=== PATIENT | female | born 1950 | race Caucasian/White ===

== ENCOUNTER 2016-12-15 14:25 | Emergency (ER) | payer MEDICARE, OTHER ==
[2016-12-15] MEDS ORDERED: NORMAL SALINE 1,000 ML IV ONE (14:46)
[2016-12-15 15:02] LABS: Hematocrit 40.9 % (37.0-47.0); Hemoglobin 14.1 gm/dL (12.5-16.0); Mean Cell Volume 84.2 fl (78-100); Mean Corpuscular Hgb Conc 34.5 g/dl (32-36); Mean Platelet Volume 10.8 fl (6.0-9.5); Neutrophil # 4.5 K/mm3 (1.3-6.0); Neutrophil % 69.2 % (42-75.0); Platelet Count 199 K/mm3 (150-450); Red Blood Count 4.86 M/mm3 (4.2-5.4); Red Cell Distribution Width 14.2 % (11.5-14.0); White Blood Count 6.6 K/mm3 (4.0-10.5)
[2016-12-15 15:18] LABS: Prothrombin Time (Patient) 10.9 Seconds (9.4-11.4)
[2016-12-15 15:20] LABS: INR 1.05 INR (0.90-1.10)
[2016-12-15 15:21] LABS: Partial Thrombolplastin Time 24.9 Seconds (24-32)
[2016-12-15 15:22] LABS: ALT 16 U/L (19-67); AST 14 U/L (0-48); Albumin * 3.6 gm/dl (3.4-5.0); Alkaline Phosphatase * 79 U/L (50-170); Anion Gap 12.1 mmol/L (6.8-13.8); BUN/Creatinine Ratio 13.8 (9.0-21.6); Bilirubin, Total 0.7 mg/dL (0.0-1.1); Blood Urea Nitrogen 16 mg/dL (3-23); Ca. Corrected For Albumin 8.5 mg/dL (8.4-10.2); Calcium * 8.5 mg/dL (7.9-10.9); Carbon Dioxide 28.8 mmol/L (24-32.6); Chloride 100 mmol/L (97-106); Glucose * 147 mg/dL (70-110); Magnesium 1.6 mg/dL (1.2-2.8); Potassium 2.9 mmol/L (3.4-4.6); Sodium 138 mmol/L (132-142); Total Protein 7.1 gm/dL (6.2-8.2); Troponin I Less than 0.017 ng/ml (0.00-0.10)
[2016-12-15 15:43] LABS: Urine Bilirubin Negative (NEGATIVE); Urine Blood Negative /ul (NEGATIVE); Urine Ketone Negative (NEGATIVE); Urine Nitrite Negative (NEGATIVE); Urine Protein Negative (NEGATIVE); Urine Urobilinogen Normal (NORMAL)
--- OUTSIDE RECORDS SUMMARY | 2016-12-15 15:55 | XMS REPORT | Continuity of Care Document ---
:1950 Author Organization [facility] [place] [address] Care Team Providers Name Role Phone Emanuel Kohli Primary Care Provider [phone] Source Comments This disclosure is being made pursuant to the OneBuild program and maynot contain all information available regarding this patient.[facility] Active Allergies and Adverse Reactions Allergen Noted Date Severity Reactions Comments Penicillins 11/01/2016 Unknown Current Medications Be aware that medications may not be up to date as of this document. Alwaysverify current medications with the patient. Prescription Sig. Disp. Refills Start Date End Date Status levothyroxine Take 1 tablet by 90 tablet 3 08/25/2016 Active (SYNTHROID) 150 MCG mouth daily. tablet pravastatin (PRAVACHOL) Take 1 tablet by 90 tablet 3 08/25/2016 Active 40 MG tablet mouth every evening. venlafaxine HCl Take 1 capsule 90 capsule 3 08/25/2016 Active (EFFEXOR-XR) 75 MG 24 by mouth daily. hr capsule metoprolol tartrate Take 1 tablet by 180 tablet 3 08/25/2016 Active (LOPRESSOR) 50 MG mouth 2 (two) tablet times daily. aspirin 81 MG EC tablet Take 81 mg by Active mouth daily. diazepam (VALIUM) 10 MG Take 10 mg by Active tablet mouth daily. lisinopril Take 1 tablet by 90 tablet 3 11/02/2016 Active (PRINIVIL,ZESTRIL) 20 mouth daily. MG tablet varenicline (CHANTIX) 1 Take 1 tablet by 180 tablet 3 11/02/2016 Active MG tablet mouth 2 (two) times daily. furosemide (LASIX) 20 Take 1 tablet by 7 tablet 0 11/10/2016 Active MG tablet mouth daily. clopidogrel (PLAVIX) 75 Take 1 tablet by 7 tablet 0 11/10/2016 Active MG tablet mouth daily. Active Problems Problem Noted Date CVA (cerebral vascular accident) (HCC) 11/02/2016 Hypothyroidism 11/01/2016 Hyperlipidemia Hypertension Most Recent Encounters Date Type Specialty Providers Description 11/22/2016 Orders Only Provider, Not In System 11/13/2016 Orders Only Provider, Not In System 11/10/2016 Refill Family Medicine [place], Shanice A, [employer] TE[employer] 11/02/2016 Office Visit Family Medicine Emanuel Kohli MD TIA due to embolism (HCC) (Primary Dx); Essential hypertension; Hypothyroidism, unspecified type 11/02/2016 Refill Family Medicine [place], Shanice A, [employer] TECHNICIAN 11/02/2016 Refill Family Medicine [place], Shanice A, [employer] TECHNICIAN 11/02/2016 Refill Family Medicine [place], Shanice A, [employer] TECH[employer]ICIAN 11/01/2016 Abstract Family Medicine [place], [facility] Immunizations Name Dates Previously Given Next Due Tdap 01/18/2010 Social History Tobacco Use Types Packs/Day Years Used Date Current Every Day Smoker 0.5 Last Filed Vital Signs Vital Sign Reading Time Taken Blood Pressure 161/92 11/02/2016 1:13 PM CDT Pulse 74 11/02/2016 1:13 PM CDT Temperature 36.3 C (97.4 F) 11/02/2016 1:13 PM CDT Respiratory Rate 16 11/02/2016 1:13 PM CDT Height 1.753 m (5' 9") 11/02/2016 1:13 PM CDT Weight 93.804 kg (206 lb 12.8 oz) 11/02/2016 1:13 PM CDT Body Mass Index 30.53 11/02/2016 1:13 PM CDT Oxygen Saturation 96% 11/02/2016 1:13 PM CDT Plan of Care Patient Goal Type Goal Blood Pressure Blood Pressure below 140/90 Health Maintenance Due Date Last Done Comments Hepatitis C Screening 1969 Colonoscopy 2001 Mammogram 2001 Well Adult Visit 2001 Zoster Vaccine 60+ 2011 Influenza Immunization (#1) 2016 Bone Density 2016 Pneumococcal Low/Medium Risk 65+ (1 of 2 - PCV13) 2016 Tetanus/Pertussis (2 - Td) 01/19/2020 01/18/2010 Results from Last 3 Months Urinalysis with microscopic (11/10/2016)Comprehensive metabolic panel (2016)Laboratory Miscellaneous (11/10/2016)PROTIME-INR (11/10/2016) Component Value Range INR 1.0 Protime 12.2 seconds Narrative See scanned results 11-10-16 CBC auto differential (11/10/2016) Component Value Range WBC Count 9.8 10^3/mL RBC 6.00 10^6/L Hemoglobin 17.3 g/dL Hematocrit 51.8 % Platelets 195 K/L Specimen BLOOD Narrative See scanned results 11-10-16 CT HEAD OR BRAIN WO CONTRAST (11/10/2016)XR CHEST AP ONLY (11/10/2016)MRI BRAIN WO CONTRAST (10/27/2016)
[2016-12-15 15:56] LABS: Cocaine Ur Negative (NEGATIVE); Urine Barbiturate Negative (NEGATIVE); Urine Benzodiazepines Negative (NEGATIVE); Urine Opiates Negative (NEGATIVE); Urine PCP Negative (NEGATIVE); Urine THC Negative (NEGATIVE)
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
--- NOTE | 2016-12-15 16:03 | ERNOTE ---
Syncope ER HPI Stated Complaint: PASSED OUT Time Seen by Provider: 12/15/16 14:27 Source: patient, EMS Exam Limitations: no limitations Immunizations: IMMUNIZATION HX Immunizations Up to Date Yes History of Influenza Vaccine Yes Hx Pneumococcal Vaccination Yes Allergies/Adverse Reactions: Allergies Penicillins Allergy (Mild, Verified 12/15/16 14:42) rash Home Medications: HOME MEDICATIONS Aspirin [Aspirin EC] 81 mg PO DAILY 06/16/16 [Last Taken Unknown] Diazepam 10 mg PO DAILY 06/16/16 [Last Taken Unknown] HYDROcodone/ACETAMINOPHEN [[place] 5-325] 1 each PO Q4H PRN 06/16/16 [Last Taken Unknown] Levothyroxine Sodium [Synthroid] 112 mcg PO DAILY 06/16/16 [Last Taken Unknown] Metoprolol Tartrate [Lopressor] 50 mg PO BID 06/16/16 [Last Taken Unknown] Pravastatin Sodium [Pravachol] 40 mg PO DAILY 06/16/16 [Last Taken Unknown] Varenicline Tartrate [Chantix] 1 mg PO BID 06/16/16 [Last Taken Unknown] Venlafaxine HCl 75 mg PO DAILY 06/16/16 [Last Taken Unknown] oxyCODONE HCL/ACETAMINOPHEN [Percocet 5-325 mg Tablet] 1 each PO Q4H PRN [Last Taken Unknown] Clopidogrel Bisulfate [Plavix] 75 mg PO DAILY #30 tab 12/15/16 [Last Taken Unknown] - History of Present Illness Narrative: Patient was at the restaurant with her friends and had an episode where she got somewhat confused disoriented and not able to answer questions very well. Patient states she's had these episodes in the past and was in [place] several months ago and was diagnosed with TIAs. At that time patient had an MRI and MRA of the head and neck she had ultrasounds of the heart for sure and she thinks possibly the carotids. Patient states this is very similar to the episodes that she had in [place] and she is once again back to her baseline. Prior Episodes: Present: recent history Symptoms prior to episode: Present: none Activity at time of episode: Present: sitting Character of event: Present: no loss of consciousness Location of Injury: Present: none Current Symptoms: Present: back to normal Prior Treament: Reports: recently seen, treated by physician, recently hospitalized, similar symptoms before Review of Systems - Review of Systems Constitutional: Present: See HPI EYE: Present: no symptoms reported ENT: Present: no symptoms reported Respiratory: Present: no symptoms reported Cardiology: Present: no symptoms reported Gastrointestinal/Abdominal: Present: no symptoms reported Genitourinary: Present: no symptoms reported Musculoskeletal: Present: no symptoms reported Skin: Present: no symptoms reported Neurological: Present: See HPI Endocrine: Present: no symptoms reported Hematologic/Lymphatic: Present: no symptoms reported Psych: Present: no symptoms reported - Patient's Past Medical History Patient History - Medical: Other - multiple TIA's Patient History - Cardiac/Respiratory: Other Patient History - Cancer: No Hx of Cancer Patient History - Surgical Procedures: Colonoscopy, Cardiac stent, Tubal Ligation Patient History - Other: None LMP (females 10-50): Menopausal - Family History Father Family History - Medical: , Other Family History - Cardiac/Respiratory: No pertinent hx Mother Family History - Medical: No pertinent hx Family History - Cardiac/Respiratory: No pertinent hx - Social History Living Situations: home Abuse History: No History of abuse Psych History: Hx of Anxiety, Hx of Depression, Current tx/ever been on anti- depressants or anti-anxiety meds Smoking Status: Current every day smoker Have you smoked in the past 12 months: Yes Alcohol Use: none Drug Use: none - Immunizations Immunizations Up to Date: Yes Hx Pneumococcal Vaccination: Yes History of Influenza Vaccine: Yes Physical Exam - Physical Exam General Appearance: Present: wd/wn, alert, no apparent distress Eye Exam: Normal inspection: bilateral, PERRL: bilateral Ears, Nose, Throat: Present: normal ENT inspection, H, normal pharynx Neck: Present: normal inspection, nontender Respiratory: Present: no respiratory distress, normal breath sounds, no accessory muscle use, chest nontender, lungs clear Cardiovascular/Chest: Present: regular rate, rhythm, no murmur, normal peripheral pulses Gastrointestinal/Abdominal: Present: normal bowel sounds, nontender, nondistended, soft, no organomegaly Rectal Exam: Present: deferred Back Exam: Present: normal inspection, normal range of motion Extremity Exam: Present: normal inspection, non-tender, no edema, normal range of motion Neurological Exam: Present: alert, oriented, normal mood/affect, other - mild perseverence Skin Exam: Present: normal color, warm/dry Lymphatic Exam: Present: no adenopathy ED Progress - Results and Orders Patient's Lab Results:: I have reviewed the patient's lab results. - Vital Signs Patient's Vital Signs:: I have reviewed the patient's vital signs. Vital Signs: Vital Signs 12/15/16 12/15/16 14:25 15:29 Temperature 36.5 C 36.3 C L Pulse Rate 70 74 Respiratory 16 12 Rate Blood Pressure 177/87 167/101 O2 Sat by Pulse 93 95 Oximetry - EKG EKG: NSR, RBBB - CT/Ultrasound CT/Ultrasound Narrative: CT head reviewed - Progress/Reassessment Chief Complaint: Syncopal Episode - Transfer of Care Expected Disposition: Discharge Plan - Plan Plan: Patient states these are exactly the same kind of symptoms that she had while she was in [place]. At that point she received a full stroke workup including examination of the brain with MRI MRA, examination of the carotid arteries and echocardiogram of the heart. No abnormalities were found on those exams and patient was started on prophylactic medicines to try to minimize the risk of a stroke. I will review these medications that she is on and perhaps alter them to certainly very and she has had another breakthrough TIA. Patient is completely back to baseline now and feels 100% normal. Patient was started on a baby aspirin while she was in [place] and we will change that medication to Plavix at this juncture. Patient will given the name of Dr. Yen Dutta for follow-up and patient is discharged in stable condition. Departure Clinical Impression: TIA (transient ischemic attack) Qualifiers: Transient cerebral ischemia type: unspecified Qualified Code(s): G45.9 - Transient cerebral ischemic attack, unspecified - Departure Disposition: Home self-care Condition: Good Instructions: Transient Ischemic Attack, [id number] Referrals: Hetal Vinson FNP [Primary Care Provider] - Yen Dutta DO [Staff Physician] - Prescriptions: Clopidogrel Bisulfate [Plavix] 75 mg PO DAILY #30 tab
[2016-12-15 16:07] LABS: Urine Appearance Clear; Urine Color Yellow; Urine WBC TRACE /hpf (0-5)
[2016-12-15 16:08] LABS: Urine Bacteria 1+; Urine RBC None Seen /hpf (0-5)
[2016-12-15 16:11] VITALS: BP 180/87
== END 2016-12-15 16:22 | disposition home or self-care (01) ==
LOC: ER 14:25
DX: G45.9 Transient cerebral ischemic attack, unspecified (principal); R41.0 Disorientation, unspecified; F17.200 Nicotine dependence, unspecified, uncomplicated
CPT/HCPCS: 36415; 70450; 80053; 80307; 81001; 82140; 83735; 84484; 85025; 85610; 85730; 87086; 93005; 99283; G0481

== ENCOUNTER 2018-08-06 13:59 | Observation (INO) ==
[2018-08-06 14:58] LABS: Hematocrit 25.6 % (37.0-47.0); Mean Cell Volume 94.1 fl (78-100); Mean Corpuscular Hemoglobin 27.2 pg (27-31); Mean Corpuscular Hgb Conc 28.9 g/dl (32-36); Neutrophil # 6.9 K/mm3 (1.3-6.0); Neutrophil % 84.6 % (42-75.0); Platelet Count 240 K/mm3 (150-450); Red Blood Count 2.72 M/mm3 (4.2-5.4); Red Cell Distribution Width 20.9 % (11.5-14.0); White Blood Count 8.2 K/mm3 (4.0-10.5)
[2018-08-06 14:59] LABS: Hemoglobin 7.4 gm/dL (12.5-16.0)
[2018-08-06 15:10] LABS: Albumin * 2.7 gm/dl (3.4-5.0); Anion Gap 13.5 mmol/L (6.8-13.8); BUN/Creatinine Ratio 20.8 (9.0-21.6); Bilirubin, Total 1.4 mg/dL (0.0-1.1); Ca. Corrected For Albumin 9.2 mg/dL (8.4-10.2); Calcium * 8.5 mg/dL (7.9-10.9); Carbon Dioxide 33.1 mmol/L (24-32.6); Magnesium 1.9 mg/dL (1.2-2.8); Potassium 3.6 mmol/L (3.4-4.6); Total Protein 6.2 gm/dL (6.2-8.2)
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
[2018-08-06 15:13] LABS: Urine Bilirubin Negative (NEGATIVE); Urine Ketone Negative (NEGATIVE); Urine Nitrite Negative (NEGATIVE); Urine Protein Negative (NEGATIVE); Urine Urobilinogen Normal (NORMAL); Urine pH 6.5 pH (5.0-7.0)
[2018-08-06 15:20] LABS: Urine Appearance Slightly Cloudy (CLEAR); Urine Bacteria 2+; Urine Blood 5 /ul (NEGATIVE); Urine Color Yellow; Urine RBC 0-5 /hpf (0-5); Urine WBC 25-50 /hpf (0-5)
[2018-08-06 15:21] LABS: Urine Yeast Few - 1+
[2018-08-06] MEDS ORDERED: NORMAL SALINE 1,000 ML IV ONE (15:31)
[2018-08-06] MEDS ORDERED: cefTRIAXone SODIUM 1,000 MG/100 ML BAG IV ONE (16:13)
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
[2018-08-06] MEDS: AMIODARONE HCL 200 MG TABLET PO SCH (21:40)
[2018-08-06] MEDS: MIDODRINE HCL 2.5 MG TABLET PO SCH (21:41)
[2018-08-06] MEDS: DOXYCYCLINE HYCLATE 100 MG TABLET PO SCH (21:41)
[2018-08-06] MEDS: APIXABAN 5 MG TABLET PO SCH (21:41)
[2018-08-06] MEDS: NICOTINE 14 MG PATC TD SCH (21:41)
[2018-08-06] MEDS: CARVEDILOL 3.125 MG TABLET PO SCH (21:41)
[2018-08-07 07:40] LABS: Hematocrit 32.8 % (37.0-47.0); Hemoglobin 10.3 gm/dL (12.5-16.0); Mean Cell Volume 90.9 fl (78-100); Mean Corpuscular Hemoglobin 28.5 pg (27-31); Mean Corpuscular Hgb Conc 31.4 g/dl (32-36); Mean Platelet Volume 9.6 fl (8-12.5); Neutrophil # 6.2 K/mm3 (1.3-6.0); Neutrophil % 85.6 % (42-75.0); Platelet Count 200 K/mm3 (150-450); Red Blood Count 3.61 M/mm3 (4.2-5.4); Red Cell Distribution Width 19.2 % (11.5-14.0); White Blood Count 7.2 K/mm3 (4.0-10.5)
[2018-08-07 08:01] LABS: Albumin * 2.6 gm/dl (3.4-5.0); Anion Gap 12.9 mmol/L (6.8-13.8); BUN/Creatinine Ratio 19.5 (9.0-21.6); Bilirubin, Total 1.3 mg/dL (0.0-1.1); Ca. Corrected For Albumin 8.9 mg/dL (8.4-10.2); Calcium * 8.1 mg/dL (7.9-10.9); Carbon Dioxide 31.3 mmol/L (24-32.6); Potassium 3.2 mmol/L (3.4-4.6); Total Protein 6.2 gm/dL (6.2-8.2)
[2018-08-07] MEDS: PANTOPRAZOLE SODIUM 40 MG TABLET.EC PO SCH (08:07)
[2018-08-07] MEDS: CARVEDILOL 3.125 MG TABLET PO SCH ×2 (08:07→16:19)
[2018-08-07] MEDS: DOXYCYCLINE HYCLATE 100 MG TABLET PO SCH ×2 (08:07→22:07)
[2018-08-07] MEDS: LACTOBACILLUS ACIDOPHILUS 100 CAP BTL PO SCH ×3 (08:08→16:18)
[2018-08-07] MEDS: VENLAFAXINE HCL 37.5 MG CAP.SR.24H PO SCH (08:08)
[2018-08-07] MEDS: LEVOTHYROXINE SODIUM 150 MCG TABLET PO SCH (08:08)
[2018-08-07] MEDS: CLOPIDOGREL BISULFATE 75 MG TABLET PO SCH (08:08)
[2018-08-07] MEDS: DOCUSATE SODIUM 100 MG CAPSULE PO SCH (08:08)
[2018-08-07] MEDS: AMIODARONE HCL 200 MG TABLET PO SCH ×2 (08:08→22:07)
[2018-08-07] MEDS: DULoxetine HCL 30 MG CAPSULE.SA PO SCH (08:08)
[2018-08-07] MEDS: ASPIRIN 81 MG TABLET.DR PO SCH (08:08)
[2018-08-07] MEDS: MIDODRINE HCL 2.5 MG TABLET PO SCH ×3 (08:09→16:18)
[2018-08-07] MEDS: APIXABAN 5 MG TABLET PO SCH ×2 (08:09→22:07)
[2018-08-07] MEDS: NICOTINE 14 MG PATC TD SCH (08:15)
[2018-08-07] MEDS: NORMAL SALINE 1,000 ML IV PRN ×2 (08:17→22:02)
[2018-08-07] MEDS ORDERED: ROSUVASTATIN CALCIUM 10 MG TABLET PO SCH ×2 (09:00→21:00)
[2018-08-07] MEDS ORDERED: ALBUTEROL SULFATE 2.5 MG/0.5 ML VIAL.NEB IH PRN (17:28)
[2018-08-07] MEDS ORDERED: ACETAMINOPHEN 325 MG TABLET PO PRN (17:28)
[2018-08-07] MEDS ORDERED: Lytes/Yerba Santa 60 APPL BTL MM PRN (17:28)
[2018-08-07] MEDS ORDERED: ENOXAPARIN SODIUM 40 MG/0.4 ML SYRG SC SCH (17:45)
--- NOTE | 2018-08-07 20:38 | PN ---
Subjective - Date and Time Seen Date: 08/07/18 Time: 12:50 Subjective Narrative: Inna appears to feel better today and her color is definitely improved since being transfused. She is still sleepy and frequently confused. Family is wondering if some of this may be a medication such as her venlafaxine. Since she has both cirrhosis of her liver and stage IV chronic kidney disease it is possible that she is not clearing one or more of her drugs. One of her medi cines, midodrine, is indicated for hypotension, orthostatic and otherwise. However it is contraindicated in people with chronic kidney disease or heart disease and Inna has both. Therefore I will discontinue this medicine and will monitor her blood pressures. Objective - Review of Systems Generalized/Overall Review: Reports: Weakness, Malaise EENTM: Reports: No Symptoms Reported Respiratory: Reports: No Symptoms Reported Cardiac: Reports: No Symptoms Reported Abdominal: Reports: No Symptoms Reported Genitourinary Symptoms: Reports: No Symptoms Reported Musculoskeletal Complaints: Reports: No Symptoms Reported Neurological: Reports: No Symptoms Reported Skin: Reports: No Symptoms Reported Endocrine: Reports: No Symptoms Reported - Vitals Vitals: Last Vital Signs Temp 36.3 C 08/07/18 14:32 Pulse 97 08/07/18 16:19 Resp 16 08/07/18 14:32 BP 128/80 08/07/18 16:19 Pulse Ox 96 08/07/18 14:32 - Abnormal Lab Findings Abnormal Lab Findings: Abnormal Lab Results 08/06/18 08/07/18 08/07/18 Range/Units 15:45 07:30 07:30 RBC 3.61 L (4.2-5.4) M/mm3 Hgb 10.3 L (12.5-16.0) gm/dL Hct 32.8 L (37.0-47.0) % MCHC 31.4 L (32-36) g/dl RDW 19.2 H (11.5-14.0) % Neutrophils % 85.6 H (42-75.0) % Lymphocytes % 9.7 L (20-51) % Neutrophils # 6.2 H (1.3-6.0) K/mm3 Lymphocytes # 0.70 L (1.5-3.5) k/mm3 Potassium 3.2 L (3.4-4.6) mmol/L BUN 48 H (3-23) mg/dL Creatinine 2.46 H (0.4-1.4) mg/dL Est GFR (Non-Af Amer) 21 L (60-130) mL/min Total Bilirubin 1.3 H (0.0-1.1) mg/dL Alkaline Phosphatase 217 H (50-170) U/L Albumin 2.6 L (3.4-5.0) gm/dl Crossmatch See Detail - Exam Constitutional: Present: Oriented x3, Cooperative, Well developed, Well nourished, Mild distress, Looks Older than stated age ENT Exam: Present: normal ENT inspection, hearing grossly normal, pharynx normal Neck: Present: non-tender, full range of motion, supple, normal inspection Breasts: Present: Exam deferred Respiratory: Present: chest non-tender, lungs clear, normal breath sounds, no respiratory distress, no accessory muscle use Cardiovascular/Chest: Present: normal peripheral pulses, regular rate, rhythm, no chest tenderness, no edema, no gallop, no JVD, no murmur, no rub Abdomen: Present: Normal bowel sounds, soft, nontender, nondistended, no rebound tenderness, no hepatospenomegaly, no masses /Rectal: Present: Exam deferred, External genitalia normal, discharge Extremity: Present: normal range of motion, non-tender, normal inspection Skin Exam: Present: normal color, warm/dry, no cyanosis Lymphatic: Present: no adenopathy, axilla node tender (R) Neurologic: Present: [place] former brace end II-XII nml as tested, normal cerebellar test Appearance: Present: appropriate appearance, appropriate insight Eye contact: Present: cooperative, good eye contact, normal speech Thoughts: Present: normal thought pattern, no apparent hallucination Assessment/Plan - Problems/Diagnosis (1) Anemia Problem: Acute Qualifiers: Anemia type: unspecified type Qualified Code(s): D64.9 - Anemia, unspecified (2) Cirrhosis of liver Problem: Acute (3) Pleural effusion Problem: Acute (4) Status post below knee amputation of left lower extremity Problem: Acute (5) Chronic renal insufficiency, stage IV (severe) Problem: Acute (6) Dehydration Problem: Acute (7) Cardiomegaly Problem: Chronic (8) UTI (urinary tract infection) Problem: Acute Qualifiers: Urinary tract infection type: acute cystitis Hematuria presence: without hematuria Qualified Code(s): N30.00 - Acute cystitis without hematuria
[2018-08-07] MEDS: POLYETHYLENE GLYCOL 3350 119 GM BTL PO SCH (22:08)
[2018-08-08] MEDS: LEVOTHYROXINE SODIUM 150 MCG TABLET PO SCH (06:50)
[2018-08-08] MEDS: DENTAL ADHESIVE 39 APPL TUBE TP SCH ×2 (08:53→09:08)
[2018-08-08] MEDS: DOXYCYCLINE HYCLATE 100 MG TABLET PO SCH (08:54)
[2018-08-08] MEDS: LACTOBACILLUS ACIDOPHILUS 100 CAP BTL PO SCH (08:54)
[2018-08-08] MEDS: ASPIRIN 81 MG TABLET.DR PO SCH (08:54)
[2018-08-08] MEDS: DULoxetine HCL 30 MG CAPSULE.SA PO SCH (08:55)
[2018-08-08] MEDS: DOCUSATE SODIUM 100 MG CAPSULE PO SCH (08:55)
[2018-08-08] MEDS: APIXABAN 5 MG TABLET PO SCH (08:56)
[2018-08-08] MEDS: VENLAFAXINE HCL 37.5 MG CAP.SR.24H PO SCH (08:56)
[2018-08-08] MEDS: PANTOPRAZOLE SODIUM 40 MG TABLET.EC PO SCH (08:56)
[2018-08-08] MEDS: CLOPIDOGREL BISULFATE 75 MG TABLET PO SCH (08:56)
[2018-08-08] MEDS: CARVEDILOL 3.125 MG TABLET PO SCH (08:56)
[2018-08-08] MEDS: AMIODARONE HCL 200 MG TABLET PO SCH (08:56)
[2018-08-08] MEDS: NICOTINE 14 MG PATC TD SCH (08:57)
[2018-08-08] MEDS: POLYETHYLENE GLYCOL 3350 119 GM BTL PO SCH (08:58)
[2018-08-08 09:03] LABS: Hemoglobin 10.4 gm/dL (12.5-16.0); Mean Cell Volume 91.4 fl (78-100); Mean Corpuscular Hgb Conc 30.6 g/dl (32-36); Mean Platelet Volume 10.1 fl (8-12.5); Neutrophil % 80.2 % (42-75.0); Platelet Count 197 K/mm3 (150-450); Red Blood Count 3.72 M/mm3 (4.2-5.4); Red Cell Distribution Width 18.6 % (11.5-14.0); White Blood Count 7.4 K/mm3 (4.0-10.5)
[2018-08-08 09:16] LABS: Albumin * 2.6 gm/dl (3.4-5.0); Anion Gap 12.8 mmol/L (6.8-13.8); BUN/Creatinine Ratio 19.1 (9.0-21.6); Ca. Corrected For Albumin 8.9 mg/dL (8.4-10.2); Calcium * 8.1 mg/dL (7.9-10.9); Carbon Dioxide 30.1 mmol/L (24-32.6); Potassium 2.9 mmol/L (3.4-4.6); Total Protein 6.2 gm/dL (6.2-8.2)
[2018-08-08] MEDS: NORMAL SALINE 1,000 ML IV PRN (11:22)
--- NOTE | 2018-08-08 12:07 | DS ---
(1) Anemia Problem: Resolved Qualifiers: Anemia type: unspecified type Qualified Code(s): D64.9 - Anemia, unspecified (2) Cirrhosis of liver Problem: Chronic (3) Pleural effusion Problem: Chronic (4) Status post below knee amputation of left lower extremity Problem: Chronic (5) Chronic renal insufficiency, stage IV (severe) Problem: Chronic (6) Dehydration Problem: Resolved (7) Cardiomegaly Problem: Chronic (8) UTI (urinary tract infection) Problem: Acute Qualifiers: Urinary tract infection type: acute cystitis Hematuria presence: without hematuria Qualified Code(s): N30.00 - Acute cystitis without hematuria Description of Stay: Inna Fregoso is a 67-year-old female who was admitted with altered mental status and decreased awareness. She was more shortness of breath and weaker and hypersomnolence. She was brought to the emergency room and found to be anemic with hemoglobin of 7.4 g. Also discovered were bilateral pleural effusions right greater than left, stage IV chronic kidney disease, electrolyte imbalance, and cirrhosis of her liver. CT of the head in the ER was negative. Subsequent chest x-ray done yesterday actually shows increased pulmonary vascular markings but I think is probably due just to improve hydration rather than failure. Her neck veins are not distended in her HJR is negative there is minimal if any edema. She recently had had a left BKA and she has been and also residential recovering. She has a large eschar and the flap suture line. There is just mild pinkness of the edge of the suture line but there is no redness, fever, or unusual pain. There is no purulence although there is some clear serous drainage in one location. Wound care was asked to see her for recommendations and management. It appears to me that this wound is healing and apparently should be given a chance to do so. It is not infected and is not dehiscing. She'll be going back to [place] for further care and recovery from her amputation. Procedures Performed: see notes below - blood transfusions 2 units packed red blood cells Results and Findings: Pending Mircobiology Results 08/06/18 15:00 Blood Blood Culture - Preliminary NO GROWTH 24 HOURS 08/06/18 14:41 Blood Blood Culture - Preliminary NO GROWTH 24 HOURS Lab Pending Results 08/06/18 14:41: WBC 8.2, RBC 2.72 L, Hgb 7.4 L* D, Hct 25.6 L, MCV 94.1, MCH 27.2, MCHC 28.9 L, RDW 20.9 H, Plt Count 240, MPV 10.0, Immature Gran % (Auto) 0.40, Immature Gran # (Auto) 0.03, Neutrophils % 84.6 H, Lymphocytes % 10.5 L, Monocytes % 3.2, Eosinophils % 1.2, Basophils % 0.1, Nucleated RBC % 0.0, Neutrophils # 6.9 H, Lymphocytes # 0.86 L, Monocytes # 0.3, Eosinophils # 0.1, Absolute Basophils 0.0 08/06/18 14:41: Sodium 141, Plasma Sodium 141, Potassium 3.6 D, Chloride 98, Carbon Dioxide 33.1 H, Anion Gap 13.5, BUN 50 H D, Creatinine 2.40 H D, Est GFR (Non-Af Amer) 21 L D, BUN/Creatinine Ratio 20.8, Random Glucose 92, Calcium 8.5, Calcium Adj for Albumin 9.2, Magnesium 1.9, Total Bilirubin 1.4 H, AST 31, ALT 22, Alkaline Phosphatase 212 H, Total Protein 6.2, Albumin 2.7 L 08/06/18 14:41: Lactic Acid, Venous 2.3 H* 08/06/18 14:41: Ammonia Less than 17.0 08/06/18 14:41: Troponin I 0.049 08/06/18 15:09: Urine Color Yellow, Urine Appearance Slightly cloudy, Urine pH 6.5, Ur Specific [place] 1.010, Urine Protein Negative, Urine Glucose (UA) Negative, Urine Ketones Negative, Urine Blood 5 H, Urine Nitrate Negative, Urine Bilirubin Negative, Urine Urobilinogen Normal, Ur Leukocyte Esterase 100 H, Urine RBC 0-5, Urine WBC 25-50 H, Ur Epithelial Cells 5-10 H, Urine Bacteria 2+ H, Urine Yeast Few - 1+ H, Urine Culture Comments Culture to follow 08/06/18 15:45: Blood Type O Positive, Antibody Screen Negative, Crossmatch See Detail 08/06/18 19:13: Lactic Acid, Venous 1.9 08/07/18 07:30: WBC 7.2, RBC 3.61 L, Hgb 10.3 L, Hct 32.8 L, MCV 90.9, MCH 28.5, MCHC 31.4 L, RDW 19.2 H, Plt Count 200, MPV 9.6, Immature Gran % (Auto) 0.30, Immature Gran # (Auto) 0.02, Neutrophils % 85.6 H, Lymphocytes % 9.7 L, Monocytes % 1.9, Eosinophils % 2.4, Basophils % 0.1, Nucleated RBC % 0.0, Neutrophils # 6.2 H, Lymphocytes # 0.70 L, Monocytes # 0.1, Eosinophils # 0.2, Absolute Basophils 0.0 08/07/18 07:30: Sodium 141, Plasma Sodium 141, Potassium 3.2 L, Chloride 100, Carbon Dioxide 31.3, Anion Gap 12.9, BUN 48 H, Creatinine 2.46 H, Est GFR (Non- Af Amer) 21 L, BUN/Creatinine Ratio 19.5, Random Glucose 95, Calcium 8.1, Calcium Adj for Albumin 8.9, Total Bilirubin 1.3 H, AST 30, ALT 22, Alkaline Phosphatase 217 H, Total Protein 6.2, Albumin 2.6 L 08/08/18 08:49: WBC 7.4, RBC 3.72 L, Hgb 10.4 L, Hct 34.0 L, MCV 91.4, MCH 28.0, MCHC 30.6 L, RDW 18.6 H, Plt Count 197, MPV 10.1, Immature Gran % (Auto) 0.30, Immature Gran # (Auto) 0.02, Neutrophils % 80.2 H, Lymphocytes % 12.5 L, Monocytes % 3.5, Eosinophils % 3.4 H, Basophils % 0.1, Nucleated RBC % 0.0, Neutrophils # 6.0, Lymphocytes # 0.93 L, Monocytes # 0.3, Eosinophils # 0.3, Absolute Basophils 0.0 08/08/18 08:49: Sodium 141, Plasma Sodium 141, Potassium 2.9 L, Chloride 101, Carbon Dioxide 30.1, Anion Gap 12.8, BUN 42 H, Creatinine 2.20 H, Est GFR (Non- Af Amer) 24 L, BUN/Creatinine Ratio 19.1, Random Glucose 102, Calcium 8.1, Calcium Adj for Albumin 8.9, Total Bilirubin 1.0, AST 27, ALT 21, Alkaline Phosphatase 237 H, Total Protein 6.2, Albumin 2.6 L Discharge Location: [facility] Disposition: [facility] Condition: Poor Level of Care: SNF Discharge Activity: Activity as tolerated, Weight bearing - on remaining leg as able. Discharge Diet: Renal Failure Mcfp Therapy: Physicial Therapy, Occupation Therapy, Speech Therapy Referrals: Evens Vargas DO [Primary Care Provider] - Problem Oriented Discharge Instructions to Patient/Family: Iron Deficiency Anemia, Adult Complete Home Medications List: Complete Home Medication List: Aspirin [Aspirin EC] 81 mg PO DAILY 06/16/16 Clopidogrel Bisulfate [Plavix] 75 mg PO DAILY #30 tab 12/15/16 furosemide 20 mg tablet 40 mg PO DAILY 05/21/18 levothyroxine 150 mcg tablet 150 mcg PO DAILY 05/21/18 venlafaxine ER 75 mg tablet,extended release 24 hr 75 mg PO BID 05/21/18 Cyanocobalamin (Vitamin B-12) [B-12] 1,000 mcg IM Q30D 06/09/18 Acidoph/L.bulg/Bif.b/S.thermop [Bacid Caplet] 1 ea PO TID 08/06/18 Amiodarone HCl [Cordarone] 400 mg PO BID 08/06/18 Apixaban [Eliquis] 5 mg PO BID 08/06/18 Atorvastatin Calcium [Lipitor] 10 mg PO HS 08/06/18 Carvedilol [Coreg] 3.125 mg PO BID 08/06/18 Docusate Sodium [Dok] 100 mg PO DAILY 08/06/18 Nicotine [Nicotine Patch] 14 mg TOPICAL DAILY 08/06/18 Pantoprazole Sodium 40 mg PO DAILY 08/06/18 Acetaminophen [Tylenol] 650 mg PO Q4H PRN 08/07/18 Albuterol Sulfate [Albuterol Sulfate 2.5 MG/0.5ML] 1 vial INHALATION Q4H PRN 08/07/18 Calcium Carbonate [Tums] 500 mg PO BID 08/07/18 Cholecalciferol (Vitamin D3) [Vitamin D3] 1,000 unit PO DAILY 08/07/18 Polyethylene Glycol 3350 [Miralax] 17 gm PO BID 08/07/18 Saliva Substitute Combo No.9 [Biotene] 30 ml PO Q2H PRN 08/07/18 traMADol HCL [Tramadol HCl] 50 mg PO Q6H PRN 08/07/18 Dental Adhesive [Fixodent Denture Adhesive] 1 appl TOPICAL DAILY tube 08/08/18
[2018-08-08 13:37] VITALS: BP 155/94
== END 2018-08-08 13:55 ==
LOC: ER 13:59 → MS 16:39 → INTOOBSV 16:39 → MS 16:50
PROVIDERS: ADMIT Family Medicine; ATTEND Family Medicine
CPT/HCPCS: 36415; 36430; 70450; 71010; 71045; 71250; 80053; 81001; 82140; 83605; 83735; 84484; 85025; 86850; 86900; 87040; 87081; 87086; 93005; 96361; 96365; 99285; G0378; P9016

== ENCOUNTER 2018-08-21 22:03 | Inpatient (IN) ==
[2018-08-21 22:54] LABS: Hematocrit 33.3 % (37.0-47.0); Hemoglobin 10.2 gm/dL (12.5-16.0); Mean Cell Volume 87.6 fl (78-100); Mean Corpuscular Hemoglobin 26.8 pg (27-31); Mean Corpuscular Hgb Conc 30.6 g/dl (32-36); Mean Platelet Volume 10.3 fl (8-12.5); Neutrophil % 78.5 % (42-75.0); Platelet Count 167 K/mm3 (150-450); Red Cell Distribution Width 17.9 % (11.5-14.0); White Blood Count 6.4 K/mm3 (4.0-10.5)
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
[2018-08-21 23:20] LABS: Albumin * 2.4 gm/dl (3.4-5.0); Anion Gap 14.3 mmol/L (6.8-13.8); BUN/Creatinine Ratio 17.7 (9.0-21.6); Bilirubin, Total 0.8 mg/dL (0.0-1.1); Ca. Corrected For Albumin 9.3 mg/dL (8.4-10.2); Calcium * 8.3 mg/dL (7.9-10.9); Carbon Dioxide 27.5 mmol/L (24-32.6); Potassium 4.8 mmol/L (3.4-4.6); Total Protein 6.1 gm/dL (6.2-8.2)
[2018-08-22] MEDS ORDERED: VANCOMYCIN HCL IV ONE ×2 (00:11)
[2018-08-22] MEDS ORDERED: WATER IV ONE ×2 (00:11)
[2018-08-22] MEDS ORDERED: DEXTROSE 5% IV ONE ×2 (00:11)
[2018-08-22 00:20] LABS: Urine Bilirubin Negative (NEGATIVE); Urine Blood Negative /ul (NEGATIVE); Urine Ketone Negative (NEGATIVE); Urine Nitrite Negative (NEGATIVE); Urine Protein Negative (NEGATIVE); Urine Specific Gravity 1.025 SP.GR. (1.005-1.010); Urine Urobilinogen Normal (NORMAL); Urine pH 5.5 pH (5.0-7.0)
[2018-08-22 00:28] LABS: Urine Amorphous Sediment TRACE (NONE-FEW); Urine Appearance Slightly Cloudy (CLEAR); Urine Bacteria 1+; Urine Color Yellow; Urine Hyaline Cast TRACE /LPF; Urine Mucus TRACE; Urine RBC 0-5 /hpf (0-5); Urine WBC 0-5 /hpf (0-5)
[2018-08-22] MEDS ORDERED: NORMAL SALINE 1,000 ML IV ONE (02:02)
[2018-08-22] MEDS: PIPERACILLIN SODIUM/TAZOBACTAM 3.375 GM in DEXTROSE 5 % IN WATER 100 ML IV SCH ×4 (03:50→11:50)
[2018-08-22] MEDS ORDERED: NORMAL SALINE 500 ML IV ONE (07:24)
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
[2018-08-22] MEDS ORDERED: traMADol HCL 50 MG TABLET PO PRN (08:23)
[2018-08-22] MEDS ORDERED: ACETAMINOPHEN 325 MG TABLET PO PRN (08:23)
[2018-08-22] MEDS ORDERED: ALBUTEROL SULFATE 2.5 MG/0.5 ML VIAL.NEB IH PRN (08:23)
[2018-08-22] MEDS: NORMAL SALINE 1,000 ML IV PRN ×2 (08:30→09:50)
[2018-08-22] MEDS ORDERED: NICOTINE 14 MG PATC TD SCH (09:00)
[2018-08-22] MEDS ORDERED: POLYETHYLENE GLYCOL 3350 119 GM BTL PO SCH (09:00)
[2018-08-22] MEDS ORDERED: AMIODARONE HCL 200 MG TABLET PO SCH (09:00)
[2018-08-22] MEDS ORDERED: LEVOTHYROXINE SODIUM 150 MCG TABLET PO SCH (09:00)
[2018-08-22] MEDS ORDERED: DOCUSATE SODIUM 100 MG CAPSULE PO SCH (09:00)
[2018-08-22] MEDS ORDERED: SACCHAROMYCES BOULARDII 250 MG CAPSULE PO SCH (09:00)
[2018-08-22] MEDS ORDERED: PANTOPRAZOLE SODIUM 40 MG TABLET.EC PO SCH (09:00)
[2018-08-22] MEDS ORDERED: MORPHINE SULFATE 2 MG/ML DISP.SYRIN IV PRN (10:53)
--- NOTE | 2018-08-22 10:54 | OR ---
Operative Report - Dictated Report Narrative: Date of Service:08/22/18 Procedure: Right internal jugular central venous line with US guidance Pre-procedure diagnosis: sepsis, need to central access Post-procedure diagnosis: same Surgeon: Dr. Holly Price Anesthesia: local Indication for procedure: Inna is a pleasant 67-year-old female with sepsis. He has poor IV access, needs central venous access for fluids. Description of procedure: After appropriate informed consent was obtained from her family, she was prepped and draped in the usual sterile fashion. The internal jugular vein was visualized using the ultrasound. Local anesthetic was applied. The [employer] needle was used to access the internal jugular vein. The wire was threaded using the Seldinger technique. The wire threaded easily. A small skin neck was made alongside the wire. The dilator sheath was then placed over the wire using Seldinger technique. The catheter was previously flushed. It was then placed over the wire using Seldinger technique. The wire was removed. The catheter was positioned at 18 cm. The butterfly device was placed to secure the catheter, this was sutured in place. All of the ports flushed easily and withdrew blood easily. A Tegaderm was placed. Patient tolerated the procedure well. Complications: none Specimens to pathology: none Estimated blood loss: Minimal Disposition: Patient is septic and is still critical, she will be transferred to the [facility].
--- NOTE | 2018-08-22 10:57 | ANES ---
Anesthesia Procedure Note Procedure Note: ANESTHESIA PROCEDURE NOTE Date of Procedure: 08/22/2018. Time of procedure: 1030. Performed by: Jose Sapp CRNA Forming Department End Finder: None. Preprocedure diagnosis: Sepsis. Post procedure diagnosis: Same. Procedure: Attempted bilateral radial and brachial ultrasound guided arterial line. Indications: There is a 67-year-old female in SCU who is in need of frequent blood pressure monitoring. Findings: See below. Details of the procedure: Under direct ultrasound visualization the radial artery was identified. The skin over the intended target site was prepped with ChloraPrep. The skin was anesthetized with 1% lidocaine. The arterial puncture was successful with a 20-gauge IV catheter, but could not advance catheter despite manipulation with through & through technique. Attempts were then made on the right brachial, left radial, and left brachial arteries with same results. Further attempts at arterial line insertion were then aborted. Hemostasis was obtained at the arterial line puncture sites. And sterile dressings were applied. EBL: Minimal. Fluids: N/A. Specimen: N/A. Post procedure condition: The patient tolerated the procedure well. No complications were noted. Thank you for this consultation. Jose Sapp CRNA
--- NOTE | 2018-08-22 15:11 | DS ---
Transfer Discharge Summary - Diagnosis(s)/Problems (1) Septic shock Problem: Acute (2) Amputation stump infection Problem: Acute (3) Vascular insufficiency of limb Problem: Acute (4) Elevated liver enzymes Problem: Acute (5) Chronic renal insufficiency, stage IV (severe) Problem: Chronic (6) Dehydration Problem: Resolved (7) Postoperative wound infection Problem: Acute - Course Description of Stay: Inna Fregoso is a 67-year-old female patient who became weak and incoherent last night at the residential. custodial called me and described her stop is dehiscing and that there was fluid pouring from it. Her blood pressure at the time was okay but they stated her eyes rolling back in her head and she was not coherent. She was brought to the hospital per EMS evaluated in the emergency room and found to be in sepsis. I gave her fluids and IV antibiotics and reportedly hit the time of admission no longer met sepsis criteria. However, I received a call this morning shortly after 7 stating that she appeared to be in septic shock with hypotension, mottling. Her blood pressure is 88 systolic by Doppler. She has one IV access but were unable to get another peripheral line so a central line will need to be placed. 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 She was in the hospital about a week ago and then was discharged to go to the [facility] for rehabilitation where she had done well. I went to see her last Sunday and she had a lot of swelling in the right lower extremity and I could not detect pulses there. There is tenderness in the saphenous vein just distal to the popliteal fossa. Had her come to the hospital yesterday and she had a right lower extremity venous and arterial Dop pler both of which were essentially unremarkable. On Sunday and started her furosemide to be taken daily instead of twice per week. I saw her again on Sunday at the [facility] and the swelling had gone down quite a bit. She was in good spirits sitting up in and feeling good. On Sunday she stopped eating or drinking normally and when she didn't eat or drink much of anything. She will need a central line placed and surgery has been called for that purpose. We will try to get her transferred to facility with MICU and surgical capabilities to deal with her infected stump. Procedures Performed: see notes below Procedures: IJ central line by Dr. Price art line attempts X5 without success - Results and Findings Results and Findings: Laboratory Results - last 24 hr 08/21/18 08/21/18 08/21/18 22:50 22:50 22:50 WBC 6.4 D RBC 3.80 L Hgb 10.2 L Hct 33.3 L MCV 87.6 MCH 26.8 L MCHC 30.6 L RDW 17.9 H Plt Count 167 MPV 10.3 Immature Gran % (Auto) 0.30 Immature Gran # (Auto) 0.02 Neutrophils % 78.5 H Lymphocytes % 12.9 L Monocytes % 5.2 Eosinophils % 2.8 Basophils % 0.3 Nucleated RBC % 0.0 Neutrophils # 5.0 Lymphocytes # 0.82 L Monocytes # 0.3 Eosinophils # 0.2 Absolute Basophils 0.0 pCO2 pO2 HCO3 Total CO2 Base Excess ABG pH ABG O2 Sat (Measured) Sodium 131 L Plasma Sodium 131 Potassium 4.8 H Chloride 94 L Carbon Dioxide 27.5 Anion Gap 14.3 H BUN 29 H Creatinine 1.64 H Est GFR (Non-Af Amer) 33 L BUN/Creatinine Ratio 17.7 Random Glucose 87 Lactic Acid, Venous 3.4 H* Calcium 8.3 Calcium Adj for Albumin 9.3 Total Bilirubin 0.8 AST 83 H ALT 87 H Alkaline Phosphatase 263 H Total Protein 6.1 L Albumin 2.4 L Urine Color Urine Appearance Urine pH Ur Specific Raymond Urine Protein Urine Glucose (UA) Urine Ketones Urine Blood Urine Nitrate Urine Bilirubin Urine Urobilinogen Ur Leukocyte Esterase Urine RBC Urine WBC Ur Epithelial Cells Amorphous Sediment Urine Bacteria Hyaline Casts Urine Mucus Urine Culture Comments 08/22/18 08/22/18 08/22/18 00:06 01:05 05:43 WBC RBC Hgb Hct MCV MCH MCHC RDW Plt Count MPV Immature Gran % (Auto) Immature Gran # (Auto) Neutrophils % Lymphocytes % Monocytes % Eosinophils % Basophils % Nucleated RBC % Neutrophils # Lymphocytes # Monocytes # Eosinophils # Absolute Basophils pCO2 pO2 HCO3 Total CO2 Base Excess ABG pH ABG O2 Sat (Measured) Sodium Plasma Sodium Potassium Chloride Carbon Dioxide Anion Gap BUN Creatinine Est GFR (Non-Af Amer) BUN/Creatinine Ratio Random Glucose Lactic Acid, Venous 2.8 H* 3.1 H* Calcium Calcium Adj for Albumin Total Bilirubin AST ALT Alkaline Phosphatase Total Protein Albumin Urine Color Yellow Urine Appearance Slightly cloudy Urine pH 5.5 Ur Specific Raymond 1.025 Urine Protein Negative Urine Glucose (UA) Negative Urine Ketones Negative Urine Blood Negative Urine Nitrate Negative Urine Bilirubin Negative Urine Urobilinogen Normal Ur Leukocyte Esterase Negative Urine RBC 0-5 Urine WBC 0-5 Ur Epithelial Cells None seen Amorphous Sediment Trace Urine Bacteria 1+ H Hyaline Casts Trace Urine Mucus Trace Urine Culture Comments Culture to follow 08/22/18 07:44 WBC RBC Hgb Hct MCV MCH MCHC RDW Plt Count MPV Immature Gran % (Auto) Immature Gran # (Auto) Neutrophils % Lymphocytes % Monocytes % Eosinophils % Basophils % Nucleated RBC % Neutrophils # Lymphocytes # Monocytes # Eosinophils # Absolute Basophils pCO2 31.6 L pO2 72.5 L HCO3 22.2 Total CO2 23.2 Base Excess -0.9 ABG pH 7.47 H ABG O2 Sat (Measured) 95.6 Sodium Plasma Sodium Potassium Chloride Carbon Dioxide Anion Gap BUN Creatinine Est GFR (Non-Af Amer) BUN/Creatinine Ratio Random Glucose Lactic Acid, Venous Calcium Calcium Adj for Albumin Total Bilirubin AST ALT Alkaline Phosphatase Total Protein Albumin Urine Color Urine Appearance Urine pH Ur Specific Raymond Urine Protein Urine Glucose (UA) Urine Ketones Urine Blood Urine Nitrate Urine Bilirubin Urine Urobilinogen Ur Leukocyte Esterase Urine RBC Urine WBC Ur Epithelial Cells Amorphous Sediment Urine Bacteria Hyaline Casts Urine Mucus Urine Culture Comments - Medications Medications: Active Medications Amiodarone HCl (Cordarone) 400 mg PO BID [facility] Stop: 09/21/18 09:01 Last Admin: 08/22/18 11:57 Dose: Not Given Documented by: Docusate Sodium (Colace) 100 mg PO DAILY [facility] Stop: 09/21/18 09:01 Last Admin: 08/22/18 11:57 Dose: Not Given Documented by: Piperacillin Sod/Tazobactam (Sod 3.375 gm/ Dextrose/Water) 100 mls @ 25 mls/hr IV Q8H KARIS; Protocol Stop: 09/21/18 02:16 Last Admin: 08/22/18 11:50 Dose: 25 mls/hr Documented by: Sodium Chloride (Sodium Chloride 0.9%) 1,000 mls @ 999 mls/hr IV .Q1H1M PRN PRN Reason: HYDRATION Stop: 09/21/18 08:01 Last Infusion: 08/22/18 11:20 Dose: 126 mls/hr Documented by: Levothyroxine Sodium (Synthroid) 150 mcg PO DAILY@0700 [facility] Stop: 09/21/18 09:01 Last Admin: 08/22/18 12:11 Dose: Not Given Documented by: Nicotine (Nicoderm) 14 mg TD DAILY [facility] Stop: 09/21/18 09:01 Last Admin: 08/22/18 11:58 Dose: Not Given Documented by: Pantoprazole Sodium (Protonix) 40 mg PO DAILY@0700 [facility] Stop: 09/21/18 09:01 Last Admin: 08/22/18 12:11 Dose: Not Given Documented by: Polyethylene Glycol (Miralax) 17 gm PO BID [facility] Stop: 09/21/18 09:01 Last Admin: 08/22/18 11:58 Dose: Not Given Documented by: Saccharomyces Boulardii (Florastor) 250 mg PO BID [facility] Stop: 09/21/18 09:01 Last Admin: 08/22/18 11:58 Dose: Not Given Documented by: Discontinued Medications Vancomycin HCl 1,400 mg/ (Dextrose/Water) 250 mls @ 140 mls/hr IV ONCE ONE Stop: 08/22/18 01:58 Last Infusion: 08/22/18 03:22 Dose: Infused Documented by: Sodium Chloride (Sodium Chloride 0.9%) 1,000 mls @ 999 mls/hr IV .Q1H1M ONE Stop: 08/22/18 03:02 Last Infusion: 08/22/18 04:14 Dose: Infused Documented by: Sodium Chloride (Sodium Chloride 0.9%) 500 mls @ 999 mls/hr IV .Q31M ONE Stop: 08/22/18 07:54 Last Infusion: 08/22/18 13:42 Dose: Infused Documented by: - Disposition Disposition: Short Term Hospital Inpatient Condition: Fair Discharge Date: 08/22/18 Discharge Time: 15:14
[2018-08-22 16:28] VITALS: BP 116/69
[2018-08-23] MEDS ORDERED: VENLAFAXINE HCL 37.5 MG CAP.SR.24H PO SCH (09:00)
== END 2018-08-22 15:46 | disposition short-term general hospital (02) | DRG 862 ==
LOC: ER 22:03 → MS 08-22 01:55 → SCU 08-22 08:44
PROVIDERS: ADMIT Family Medicine; ATTEND Family Medicine
DX: I73.9 Peripheral vascular disease, unspecified; Z87.891 Personal history of nicotine dependence; N18.4 Chronic kidney disease, stage 4 (severe); A41.52 Sepsis due to Pseudomonas; I87.2 Venous insufficiency (chronic) (peripheral); A41.02 Sepsis due to Methicillin resistant Staphylococcus aureus; L08.89 Other specified local infections of the skin and subcutaneous tissue; T81.44XA Sepsis following a procedure, initial encounter; E86.0 Dehydration; T81.42XA Infection following a procedure, deep incisional surgical site, initial encounter; R94.5 Abnormal results of liver function studies; R65.21 Severe sepsis with septic shock; I10 Essential (primary) hypertension; E03.9 Hypothyroidism, unspecified; I12.9 Hypertensive chronic kidney disease with stage 1 through stage 4 chronic kidney disease, or unspecified chronic kidney disease
CPT/HCPCS: 36415; 36600; 71010; 71045; 73590; 80053; 81001; 82803; 83605; 85025; 87040; 87070; 87077; 87081; 87086; 87186; 96365; 99285

== ENCOUNTER 2018-10-14 13:44 | Observation (INO) ==
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
[2018-10-14] MEDS ORDERED: NORMAL SALINE 500 ML IV ONE ×3 (14:09→15:41)
[2018-10-14 14:10] LABS: Hematocrit 29.2 % (37.0-47.0); Hemoglobin 8.8 gm/dL (12.5-16.0); Mean Cell Volume 87.7 fl (78-100); Mean Corpuscular Hemoglobin 26.4 pg (27-31); Mean Corpuscular Hgb Conc 30.1 g/dl (32-36); Mean Platelet Volume 9.1 fl (8-12.5); Neutrophil # 3.3 K/mm3 (1.3-6.0); Platelet Count 276 K/mm3 (150-450); Red Blood Count 3.33 M/mm3 (4.2-5.4); Red Cell Distribution Width 19.6 % (11.5-14.0); White Blood Count 5.2 K/mm3 (4.0-10.5)
[2018-10-14 14:32] LABS: ALT 11 U/L (19-67); AST 14 U/L (0-48); Albumin * 2.7 gm/dl (3.4-5.0); Alkaline Phosphatase * 161 U/L (50-170); Anion Gap 11.9 mmol/L (6.8-13.8); BUN/Creatinine Ratio 11.8 (9.0-21.6); Bilirubin, Total 0.4 mg/dL (0.0-1.1); Blood Urea Nitrogen 25 mg/dL (3-23); Ca. Corrected For Albumin 9.6 mg/dL (8.4-10.2); Calcium * 8.9 mg/dL (7.9-10.9); Carbon Dioxide 28.4 mmol/L (24-32.6); Chloride 93 mmol/L (97-106); Glucose * 113 mg/dL (70-110); Potassium 4.3 mmol/L (3.4-4.6); Sodium 129 mmol/L (132-142); TSH * 5.028 uIU/mL (0.358-3.74); Total Protein 6.9 gm/dL (6.2-8.2); Troponin I Less than 0.017 ng/mL (0.00-0.10)
[2018-10-14 15:09] LABS: Urine Bilirubin Negative (NEGATIVE); Urine Ketone Negative (NEGATIVE); Urine Nitrite Negative (NEGATIVE); Urine Protein Negative (NEGATIVE); Urine Urobilinogen Normal (NORMAL)
[2018-10-14 15:20] LABS: Urine Appearance Clear (CLEAR); Urine Bacteria TRACE; Urine Blood 5 /ul (NEGATIVE); Urine Color Pale Yellow; Urine RBC TRACE /hpf (0-5); Urine WBC None Seen /hpf (0-5)
[2018-10-14] MEDS ORDERED: NOREPINEPHRINE BITARTRATE 4 MG in DEXTROSE 5 % IN WATER 496 ML IV PRN ×4 (15:45→17:38)
[2018-10-14] MEDS ORDERED: POLYETHYLENE GLYCOL 3350 17 GM PACKET PO PRN (17:25)
[2018-10-14] MEDS ORDERED: ALBUTEROL SULFATE 2.5 MG/0.5 ML VIAL.NEB IH PRN (17:25)
[2018-10-14] MEDS ORDERED: traMADol HCL 50 MG TABLET PO PRN (17:25)
[2018-10-14] MEDS ORDERED: Lytes/Yerba Santa 240 APPL BTL MM PRN (17:25)
[2018-10-14] MEDS ORDERED: NORMAL SALINE 1,000 ML IV PRN (17:31)
[2018-10-14] MEDS ORDERED: ACETAMINOPHEN 500 MG TABLET PO PRN (17:35)
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
[2018-10-14] MEDS ORDERED: TEMAZEPAM 15 MG CAPSULE PO SCH (21:00)
[2018-10-14] MEDS ORDERED: ROSUVASTATIN CALCIUM 10 MG TABLET PO SCH (21:00)
[2018-10-14] MEDS: CARVEDILOL 6.25 MG TABLET PO SCH (21:11)
[2018-10-14] MEDS: CALCIUM CARBONATE 500 MG TAB.CHEW PO SCH ×2 (21:14→21:20)
[2018-10-15] MEDS ORDERED: PANTOPRAZOLE SODIUM 40 MG TABLET.EC PO SCH (07:00)
[2018-10-15] MEDS ORDERED: LEVOTHYROXINE SODIUM 150 MCG TABLET PO SCH (07:00)
[2018-10-15] MEDS: SPIRONOLACTONE 25 MG TABLET PO SCH ×2 (08:04→09:02)
[2018-10-15 08:05] LABS: Anion Gap 12.8 mmol/L (6.8-13.8); BUN/Creatinine Ratio 13.6 (9.0-21.6); Calcium * 8.3 mg/dL (7.9-10.9); Carbon Dioxide 24.1 mmol/L (24-32.6); Estimated Creat Clear 32.2; Magnesium 2.2 mg/dL (1.2-2.8); Potassium 3.9 mmol/L (3.4-4.6)
[2018-10-15] MEDS: LISINOPRIL 2.5 MG TABLET PO SCH ×2 (08:05→09:03)
[2018-10-15] MEDS: CARVEDILOL 6.25 MG TABLET PO SCH ×2 (08:05→09:03)
[2018-10-15 08:20] LABS: Hematocrit 28.9 % (37.0-47.0); Hemoglobin 8.6 gm/dL (12.5-16.0); Mean Cell Volume 89.5 fl (78-100); Mean Corpuscular Hemoglobin 26.6 pg (27-31); Mean Corpuscular Hgb Conc 29.8 g/dl (32-36); Mean Platelet Volume 9.1 fl (8-12.5); Neutrophil # 2.1 K/mm3 (1.3-6.0); Neutrophil % 55.2 % (42-75.0); Platelet Count 220 K/mm3 (150-450); Red Blood Count 3.23 M/mm3 (4.2-5.4); Red Cell Distribution Width 19.3 % (11.5-14.0); White Blood Count 3.8 K/mm3 (4.0-10.5)
[2018-10-15] MEDS: CALCIUM CARBONATE 500 MG TAB.CHEW PO SCH (08:25)
--- NOTE | 2018-10-15 08:58 | DS ---
(1) Hypotension Problem: Resolved Qualifiers: Hypotension type: hypotension due to hypovolemia Qualified Code(s): I95.89 - Other hypotension; E86.1 - Hypovolemia (2) Anemia Problem: Chronic Qualifiers: Anemia type: due to chronic kidney disease Chronic kidney disease stage: stage 4 (severe) Qualified Code(s): N18.4 - Chronic kidney disease, stage 4 (severe); D63.1 - Anemia in chronic kidney disease (3) Chronic renal insufficiency, stage IV (severe) Problem: Chronic (4) Hypoxia Problem: Resolved (5) Dehydration Problem: Resolved Description of Stay: Inna Harrell is a 68-year-old female who is currently in senior care at [facility]. She has been rehabilitating from having a left BKA which the stump became infected and she became septic. She had the [facility] and had the stump revised. His been healing well since then. She has been weak and unable to stand and transfer without assistance. She is getting better. She's been transferring using a slide board. When standing she is able to take a few steps with her walker and is able to pivot little bit. She has quieted work to do before she can go home yet. Yesterday she had an acute change in her condition and she became weak and lightheaded. She was hypotensive at the senior living and arrival in the emergency room was 70/40. Exhaustive workup for causes of hypotension was done by Dr. Ferrari. She had bolus her with 2 500 mL bags of normal saline. Her blood pressure did not improve significantly and so she had some norepinephrine drip as lowest rate and this raised her blood pressure to systolic of 101. Patient began to feel better almost immediately. She was admitted to special care unit on the [facility] for drip and to continue with IV normal saline at 125 mL per hour. This morning her blood pressure is 120/50 and then 132/80. She is sitting up, alert and conversant. When she was in [place] and diuresed 32 pounds of fluid off of her. She was on 80 mg of Lasix twice daily and I believe just became hypovolemic from that. She has received about 3-1/2 L of fluid since arriving in the ER. Blood pressure is now stable. Her morning blood pressure medicines have been held. Procedures Performed: none Results and Findings: Lab Pending Results 10/14/18 14:00: WBC 5.2, RBC 3.33 L, Hgb 8.8 L, Hct 29.2 L, MCV 87.7, MCH 26.4 L, MCHC 30.1 L, RDW 19.6 H, Plt Count 276, MPV 9.1, Immature Gran % (Auto) 0.80 H, Immature Gran # (Auto) 0.04 H, Neutrophils % 63.0, Lymphocytes % 22.3, Monocytes % 12.0 H, Eosinophils % 1.3, Basophils % 0.6, Nucleated RBC % 0.0, Neutrophils # 3.3, Lymphocytes # 1.17 L, Monocytes # 0.6, Eosinophils # 0.1, Absolute Basophils 0.0 10/14/18 14:00: Sodium 129 L, Plasma Sodium 129 L, Potassium 4.3, Chloride 93 L, Carbon Dioxide 28.4, Anion Gap 11.9, BUN 25 H, Creatinine 2.11 H, Est GFR (Non- Af Amer) 25 L, BUN/Creatinine Ratio 11.8, Random Glucose 113 H, Calcium 8.9, Calcium Adj for Albumin 9.6, Total Bilirubin 0.4, AST 14, ALT 11 L, Alkaline Phosphatase 161, Troponin I Less than 0.017, Total Protein 6.9, Albumin 2.7 L, TSH 5.028 H 10/14/18 14:00: Lactic Acid, Venous 2.0 10/14/18 14:00: Procalcitonin 0.10 10/14/18 14:54: Urine Color Pale yellow, Urine Appearance Clear, Urine pH 7.0, Ur Specific [place] 1.010, Urine Protein Negative, Urine Glucose (UA) Negative, Urine Ketones Negative, Urine Blood 5 H, Urine Nitrate Negative, Urine Bilirubin Negative, Urine Urobilinogen Normal, Ur Leukocyte Esterase Negative, Urine RBC Trace, Urine WBC None seen, Ur Epithelial Cells None seen, Urine Bacteria Trace, Urine Culture Comments Culture to follow 10/14/18 15:05: Influenza Type A Ag Negative, Influenza Type B Ag Negative 10/15/18 07:50: Sodium 130 L, Plasma Sodium 130, Potassium 3.9, Chloride 97, Carbon Dioxide 24.1, Anion Gap 12.8, BUN 24 H, Creatinine 1.77 H, Est GFR (Non- Af Amer) 30 L, BUN/Creatinine Ratio 13.6, Random Glucose 93, Calcium 8.3, Magnesium 2.2 Discharge Location: [facility] Disposition: SNF Condition: Fair Face to Face Encounter completed per [facility] Guidelines: No Level of Care: SNF Discharge Activity: Activity as tolerated Discharge Diet: General/regular food Custodial Therapy: Physicial Therapy, Occupation Therapy Referrals: Evens Vargas DO [Primary Care Provider] - Additional Patient Instructions (free text): Weigh daily and record. Recheck CBC and BMP in 2 weeks Complete Home Medications List: Complete Home Medication List: Acidoph/L.bulg/Bif.b/S.thermop [Bacid Caplet] 1 ea PO TID 10/14/18 Albuterol Sulfate [Albuterol Sulfate 2.5 MG/0.5ML] 1 vial INHALATION Q4H PRN 10/14/18 Aspirin [Aspirin EC] 81 mg PO DAILY 10/14/18 Atorvastatin Calcium [Lipitor] 10 mg PO HS 10/14/18 Calcium Carbonate [Antacid] 200 mg PO BID 10/14/18 Carvedilol [Coreg] 6.25 mg PO BID 10/14/18 Cholecalciferol [Vitamin D] 1,000 unit PO DAILY 10/14/18 Clopidogrel Bisulfate [Plavix] 75 mg PO DAILY 10/14/18 Cyanocobalamin [Vitamin B-12] 1,000 mcg IM Q30D 10/14/18 Docusate Sodium 100 mg PO DAILY 10/14/18 Lisinopril [Zestril] 2.5 mg PO DAILY 10/14/18 Nicotine [Nicotine Patch] 24 mg TD DAILY 10/14/18 Pantoprazole Sodium 40 mg PO DAILY 10/14/18 Polyethylene Glycol 3350 [Miralax] 17 gm PO DAILY PRN 10/14/18 Potassium Chloride [Klor-Con 10] 40 meq PO DAILY 10/14/18 Saliva Stimulant Agents Comb.3 [Biotene Moisturizing Mouth] 1 spray MM Q2H PRN 10/14/18 Spironolactone 12.5 mg PO DAILY 10/14/18 Venlafaxine HCl [Effexor Xr] 75 mg PO Q48H 10/14/18 traMADol HCL [Ultram] 50 mg PO QID PRN 10/14/18 Acetaminophen [Tylenol] 500 mg PO Q4H PRN tablet 10/15/18 Furosemide [Lasix] 80 mg PO Q2D #60 tab 10/15/18 Levothyroxine Sodium [Euthyrox] 175 mcg PO QAM #60 tab 10/15/18
[2018-10-15] MEDS ORDERED: NICOTINE 21 MG PATC TD SCH (09:00)
[2018-10-15] MEDS ORDERED: DOCUSATE SODIUM 100 MG CAPSULE PO SCH (09:00)
[2018-10-15] MEDS ORDERED: POTASSIUM CHLORIDE 20 MEQ TABLET.SA PO SCH (09:00)
[2018-10-15] MEDS ORDERED: VENLAFAXINE HCL 37.5 MG CAP.SR.24H PO SCH (09:00)
[2018-10-15] MEDS ORDERED: CLOPIDOGREL BISULFATE 75 MG TABLET PO SCH (09:00)
[2018-10-15] MEDS ORDERED: ASPIRIN 81 MG TABLET.DR PO SCH (09:00)
[2018-10-15 11:38] VITALS: BP 109/62
== END 2018-10-15 11:40 ==
LOC: SCU 13:44 → ER 13:44 → SCU 18:27
PROVIDERS: ADMIT Family Medicine; ATTEND Family Medicine
DX: N18.4 Chronic kidney disease, stage 4 (severe); I95.9 Hypotension, unspecified; D64.9 Anemia, unspecified; E86.0 Dehydration; I51.7 Cardiomegaly; E03.9 Hypothyroidism, unspecified
CPT/HCPCS: 36415; 71010; 71045; 80048; 80053; 81001; 83605; 83735; 84145; 84443; 84484; 85025; 87077; 87081; 87086; 87186; 87400; 87449; 93005; 96365; 96366; 99285; G0378

== ENCOUNTER 2020-08-18 11:30 | Inpatient (IN) ==
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
[2020-08-18 12:15] LABS: Hematocrit 38.6 % (37.0-47.0); Hemoglobin 13.4 gm/dL (12.5-16.0); Mean Cell Volume 81.1 fl (78-100); Mean Corpuscular Hemoglobin 28.2 pg (27-31); Mean Corpuscular Hgb Conc 34.7 g/dl (32-36); Mean Platelet Volume 9.5 fl (8-12.5); Neutrophil # 9.4 K/mm3 (1.3-6.0); Platelet Count 296 K/mm3 (150-450); Red Blood Count 4.76 M/mm3 (4.2-5.4); Red Cell Distribution Width 14.6 % (11.5-14.0); White Blood Count 11.5 K/mm3 (4.0-10.5)
[2020-08-18 12:46] LABS: Albumin * 3.4 gm/dl (3.4-5.0); BUN/Creatinine Ratio 28.3 (9.0-21.6); Bilirubin, Total 0.9 mg/dL (0.0-1.1); T4 Free * 1.58 ng/dL (0.76-1.46); TSH * 4.628 uIU/mL (0.358-3.74); Troponin I 0.061 ng/mL (0.00-0.10)
[2020-08-18 12:59] LABS: Urine Bilirubin Negative (NEGATIVE); Urine Ketone Negative (NEGATIVE); Urine Nitrite Negative (NEGATIVE); Urine Protein Negative (NEGATIVE); Urine Urobilinogen Normal (NORMAL); Urine pH 5.5 pH (5.0-7.0)
[2020-08-18 13:07] LABS: Urine Appearance Cloudy (CLEAR); Urine Blood 10 /ul (NEGATIVE); Urine Color Yellow
[2020-08-18 13:08] LABS: Urine Bacteria TRACE; Urine RBC 0-5 /hpf (0-5)
[2020-08-18 13:24] LABS: Anion Gap 13.5 mmol/L (6.8-13.8); Carbon Dioxide 32.9 mmol/L (24-32.6); Potassium 1.4 mmol/L (3.4-4.6)
[2020-08-18 13:25] LABS: Ca. Corrected For Albumin 8.1 mg/dL (8.4-10.2); Calcium * 7.9 mg/dL (7.9-10.9)
[2020-08-18] MEDS ORDERED: POTASSIUM CHLORIDE IN WATER 100 ML IV ONE (14:00)
[2020-08-18] MEDS ORDERED: NORMAL SALINE 1,000 ML IV PRN (14:28)
[2020-08-18] MEDS ORDERED: ACETAMINOPHEN 500 MG TABLET PO PRN (16:43)
[2020-08-18] MEDS ORDERED: NORMAL SALINE 1,000 ML IV ONE ×2 (16:44→22:14)
[2020-08-18] MEDS: ENOXAPARIN SODIUM 30 MG/0.3 ML SYRG SC SCH (17:40)
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
[2020-08-18] MEDS: VENLAFAXINE HCL 37.5 MG CAP.SR.24H PO SCH (20:47)
[2020-08-18] MEDS: ROSUVASTATIN CALCIUM 5 MG TABLET PO SCH (20:47)
[2020-08-18] MEDS: CIPROFLOXACIN HCL 250 MG TABLET PO SCH (20:47)
[2020-08-18] MEDS: PANTOPRAZOLE SODIUM 20 MG TABLET.DR PO SCH (20:48)
[2020-08-18 21:41] LABS: Albumin * 3.1 gm/dl (3.4-5.0); Anion Gap 11.6 mmol/L (6.8-13.8); BUN/Creatinine Ratio 26.2 (9.0-21.6); Bilirubin, Total 0.9 mg/dL (0.0-1.1); Ca. Corrected For Albumin 7.8 mg/dL (8.4-10.2); Calcium * 7.4 mg/dL (7.9-10.9); Carbon Dioxide 31.9 mmol/L (24-32.6); Total Protein 7.1 gm/dL (6.2-8.2)
[2020-08-18 21:51] LABS: Potassium 1.5 mmol/L (3.4-4.6)
[2020-08-18] MEDS: POTASSIUM CHLORIDE IN WATER 100 ML IV SCH ×2 (22:50→23:54)
[2020-08-19] MEDS: POTASSIUM CHLORIDE IN WATER 100 ML IV SCH ×6 (00:50→11:51)
[2020-08-19] MEDS: PANTOPRAZOLE SODIUM 20 MG TABLET.DR PO SCH ×2 (06:37→20:51)
[2020-08-19 07:36] LABS: Anion Gap 10.7 mmol/L (6.8-13.8); Bilirubin, Total 0.7 mg/dL (0.0-1.1); Ca. Corrected For Albumin 7.5 mg/dL (8.4-10.2); Carbon Dioxide 31.9 mmol/L (24-32.6); Total Protein 6.3 gm/dL (6.2-8.2)
[2020-08-19 07:40] LABS: Potassium 1.6 mmol/L (3.4-4.6)
[2020-08-19] MEDS ORDERED: NORMAL SALINE 1,000 ML IV ONE (07:53)
[2020-08-19] MEDS: CIPROFLOXACIN HCL 250 MG TABLET PO SCH ×2 (08:31→20:50)
[2020-08-19] MEDS: CHOLECALCIFEROL 1,000 UNIT CAPSULE PO SCH (08:31)
[2020-08-19] MEDS: SACCHAROMYCES BOULARDII 250 MG CAPSULE PO SCH (08:32)
[2020-08-19] MEDS: DOCUSATE SODIUM 100 MG CAPSULE PO SCH (08:34)
[2020-08-19] MEDS: rOPINIRole HCL 1 MG TABLET PO SCH (08:34)
[2020-08-19] MEDS: CLOPIDOGREL BISULFATE 75 MG TABLET PO SCH (08:34)
[2020-08-19] MEDS ORDERED: POTASSIUM CHLORIDE 20 MEQ TABLET.SA PO SCH (09:00)
--- NOTE | 2020-08-19 13:27 | PN ---
Subjective - Date and Time Seen Date: 08/19/20 Time: 13:20 Subjective Narrative: I still feel weak Objective Objective Narrative: 69-year-old female admitted for severe dehydration with electrolyte imbalance and MOHAMUD superimposed on CKD and UTI was evaluated at bedside and was found to be afebrile and in no acute distress. Patient continues to complain of weakness and lack of energy despite multiple liters of IV fluids. Labs this morning showed only minimal improvement of her potassium and kidney function however her hyponatremia has resolved. The patient is in need of additional potassium replacement and IV fluid, so she will be kept inpatient for continued management. For now she maintained stable vitals although she is still hypotensive so we will continue to monitor closely. - Review of Systems Generalized/Overall Review: Reports: Weakness EENTM: Reports: No Symptoms Reported Respiratory: Reports: No Symptoms Reported Cardiac: Reports: No Symptoms Reported Abdominal: Reports: No Symptoms Reported Genitourinary Symptoms: Reports: No Symptoms Reported Musculoskeletal Complaints: Reports: No Symptoms Reported Neurological: Reports: No Symptoms Reported Skin: Reports: No Symptoms Reported Endocrine: Reports: No Symptoms Reported - Vitals Vitals: Last Vital Signs Temp 36.3 C 08/19/20 10:41 Pulse 98 08/19/20 10:41 Resp 16 08/19/20 10:41 BP 105/67 08/19/20 10:41 Pulse Ox 94 08/19/20 10:41 - Abnormal Lab Findings Abnormal Lab Findings: Abnormal Lab Results 08/18/20 08/18/20 08/19/20 Range/Units 12:10 21:01 05:40 Sodium 129 L (132-142) mmol/L Plasma Sodium 129 L (130-142) mmol/L Potassium 1.4 L* D 1.5 L* 1.6 L* (3.4-4.6) mmol/L Chloride 83 L 87 L 91 L (97-106) mmol/L Carbon Dioxide 32.9 H (24-32.6) mmol/L BUN 74 H 68 H (3-23) mg/dL Creatinine 2.82 H 2.62 H (0.4-1.4) mg/dL Est GFR (Non-Af Amer) 18 L 19 L (60-130) mL/min BUN/Creatinine Ratio 26.2 H 26.0 H (9.0-21.6) Random Glucose 114 H (70-110) mg/dL Calcium 7.4 L 7.0 L (7.9-10.9) mg/dL Calcium Adj for Albumin 8.1 L 7.8 L 7.5 L (8.4-10.2) mg/dL ALT 15 L 17 L (19-67) U/L Albumin 3.1 L 3.0 L (3.4-5.0) gm/dl - Exam Constitutional: Present: Alert, Oriented x3, Cooperative, Well developed, No distress, Elderly ENT Exam: Present: normal ENT inspection, hearing grossly normal, pharynx no rmal, TMs normal Neck: Present: non-tender, full range of motion, supple, normal inspection, trachea midline Breasts: Present: Exam deferred, Nontender Respiratory: Present: chest non-tender, lungs clear, normal breath sounds, no respiratory distress, no accessory muscle use Cardiovascular/Chest: Present: normal peripheral pulses, no chest tenderness, no edema, no gallop, no JVD, no murmur, no rub, irregularly irregular Abdomen: Present: Normal bowel sounds, soft, nontender, nondistended, no rebound tenderness, no hepatospenomegaly, no masses, obese /Rectal: Present: Exam deferred Extremity: Present: non-tender, no pedal edema, no calf tenderness, normal capillary refill, pelvis stable, other Skin Exam: Present: normal color, warm/dry, no cyanosis Lymphatic: Present: no adenopathy Neurologic: Present: washroom operator II-XII nml as tested, no motor/sensory deficits, alert, normal mood/affect, oriented x 3 Appearance: Present: appropriate appearance, appropriate insight, neat, no memory impairment Eye contact: Present: cooperative, good eye contact, normal speech Thoughts: Present: normal thought pattern, no apparent hallucination Assessment/Plan Plan Narrative: Repeat labs have been ordered for tomorrow morning for reevaluation of electrolytes and renal function, in the meantime we will continue to hydrate patient and replace potassium. Today during rounds we discussed why she is now on any anticoagulants and she is unable to recall why it was discontinued, because she told me several years ago she was on Eliquis but the medication was too expensive so she can continue taking it. When asked why she was not switched to another medication she did not remember, she did however admit to a recent fall several months ago but says she has not had any recurrent falls. We will look into this further in order to discharge patient on appropriate anticoagulation given her chronic atrial fibrillation. - Problems/Diagnosis (1) Severe dehydration Problem: Resolved (2) Atrial fibrillation Problem: Chronic (3) Chronic renal insufficiency, stage IV (severe) Problem: Chronic (4) UTI (urinary tract infection) Problem: Acute Qualifiers: (5) Hypotension Problem: Resolved Qualifiers: (6) Acute kidney injury Problem: Acute (7) Hypokalemia Problem: Acute (8) Orthostatic hypotension Problem: Resolved (9) Dilated cardiomyopathy Problem: Chronic (10) Chronic atrial fibrillation with rapid ventricular response Problem: Chronic (11) Ischemic cardiomyopathy Problem: Chronic (12) Cardiovascular disease Problem: Chronic (13) Hypothyroidism Problem: Chronic Qualifiers: (14) Abnormal thyroid function test Problem: Acute (15) Hyponatremia Problem: Acute
[2020-08-19] MEDS: ENOXAPARIN SODIUM 30 MG/0.3 ML SYRG SC SCH (16:57)
[2020-08-19] MEDS: ROSUVASTATIN CALCIUM 5 MG TABLET PO SCH (20:50)
[2020-08-20 07:00] LABS: Albumin * 3.1 gm/dl (3.4-5.0); Anion Gap 15.6 mmol/L (6.8-13.8); BUN/Creatinine Ratio 19.6 (9.0-21.6); Bilirubin, Total 0.7 mg/dL (0.0-1.1); Ca. Corrected For Albumin 7.9 mg/dL (8.4-10.2); Calcium * 7.5 mg/dL (7.9-10.9); Carbon Dioxide 31.1 mmol/L (24-32.6)
[2020-08-20 07:03] LABS: Potassium 1.7 mmol/L (3.4-4.6)
[2020-08-20] MEDS: PANTOPRAZOLE SODIUM 20 MG TABLET.DR PO SCH ×2 (07:09→21:19)
[2020-08-20] MEDS: CIPROFLOXACIN HCL 250 MG TABLET PO SCH ×2 (08:46→21:15)
[2020-08-20] MEDS: METOPROLOL TARTRATE 25 MG TABLET PO SCH ×2 (08:46→21:15)
[2020-08-20] MEDS: DOCUSATE SODIUM 100 MG CAPSULE PO SCH (08:46)
[2020-08-20] MEDS: rOPINIRole HCL 1 MG TABLET PO SCH (08:46)
[2020-08-20] MEDS: SACCHAROMYCES BOULARDII 250 MG CAPSULE PO SCH (08:46)
[2020-08-20] MEDS: CHOLECALCIFEROL 1,000 UNIT CAPSULE PO SCH (08:46)
[2020-08-20] MEDS: CLOPIDOGREL BISULFATE 75 MG TABLET PO SCH (08:46)
[2020-08-20] MEDS: POTASSIUM CHLORIDE 20 MEQ TABLET.SA PO SCH ×3 (08:47→16:37)
[2020-08-20] MEDS: POTASSIUM CHLORIDE IN WATER 100 ML IV SCH ×8 (08:51→16:36)
--- NOTE | 2020-08-20 09:55 | PN ---
Subjective - Date and Time Seen Date: 08/20/20 Time: 09:46 Subjective Narrative: I feel better this morning but still a little weak Objective Objective Narrative: 69-year-old female admitted for dehydration with electrolyte imbalance and MOHAMUD superimposed on CKD and UTI was evaluated at bedside and was found to be afebrile and in no acute distress. Patient patient was in good spirits during bedside evaluation this morning however she continues to feel weak most likely due to continued fluid deficiency. We will keep her on IV hydration and additional potassium replacements. Labs this morning showed a mild improvement and her potassium but she is still not where she needs to be, therefore additional replacement potassium was ordered. We again discussed anticoagulation and it was explained to the patient that she is a high risk for VTE's MIs or strokes due to her atrial fibrillation so before discharging her we will need to decide what is the best form of anticoagulation for her. It was discovered that the patient was previously on Xarelto but due to cost and an adequate coverage by her insurance, she stopped taking the medication. It was explained to her that she should not be without the anticoagulation so we will look into it before discharge after we get info from her insurance. - Review of Systems Generalized/Overall Review: Reports: Weakness EENTM: Reports: No Symptoms Reported Respiratory: Reports: No Symptoms Reported Cardiac: Reports: No Symptoms Reported Abdominal: Reports: No Symptoms Reported Genitourinary Symptoms: Reports: No Symptoms Reported Musculoskeletal Complaints: Reports: No Symptoms Reported Neurological: Reports: No Symptoms Reported Skin: Reports: No Symptoms Reported Endocrine: Reports: No Symptoms Reported - Vitals Vitals: Last Vital Signs Temp 36.6 C 08/20/20 06:40 Pulse 98 08/20/20 08:46 Resp 16 08/20/20 06:40 BP 102/59 08/20/20 08:46 Pulse Ox 93 08/20/20 06:40 - Abnormal Lab Findings Abnormal Lab Findings: Abnormal Lab Results 08/20/20 Range/Units 06:40 Potassium 1.7 L* (3.4-4.6) mmol/L Chloride 89 L (97-106) mmol/L Anion Gap 15.6 H (6.8-13.8) mmol/L BUN 42 H (3-23) mg/dL Creatinine 2.14 H D (0.4-1.4) mg/dL Est GFR (Non-Af Amer) 24 L D (60-130) mL/min Calcium 7.5 L (7.9-10.9) mg/dL Calcium Adj for Albumin 7.9 L (8.4-10.2) mg/dL ALT 17 L (19-67) U/L Albumin 3.1 L (3.4-5.0) gm/dl - Exam Constitutional: Present: Alert, Oriented x3, Cooperative, Well developed, No distress, Elderly ENT Exam: Present: normal ENT inspection, hearing grossly normal, pharynx normal Neck: Present: non-tender, full range of motion, supple, normal inspection, trachea midline Breasts: Present: Exam deferred, Nontender Respiratory: Present: chest non-tender, lungs clear, normal breath sounds, no respiratory distress, no accessory muscle use Cardiovascular/Chest: Present: no chest tenderness, no edema, no gallop, no JVD, no murmur, no rub, irregularly irregular Abdomen: Present: Normal bowel sounds, soft, nontender, nondistended, no rebound tenderness, no hepatospenomegaly, no masses /Rectal: Present: Exam deferred Extremity: Present: no pedal edema, no calf tenderness, pelvis stable, other - Left BKA Skin Exam: Present: normal color, warm/dry, no cyanosis Lymphatic: Present: no adenopathy Neurologic: Present: cable tower operator II-XII nml as tested, no motor/sensory deficits, alert, normal mood/affect, oriented x 3 Appearance: Present: appropriate appearance, appropriate insight, neat, no m tang impairment Eye contact: Present: cooperative, good eye contact, normal speech Thoughts: Present: normal thought pattern, no apparent hallucination Assessment/Plan Plan Narrative: Additional doses of potassium replacement have been ordered and repeat labs have been ordered for tomorrow morning. In the meantime we will find out insurance information in order to determine what anticoagulant to start on the patient. She is still hypotensive but she presented with Velma sheldon with RVR this morning most likely due to the holding of her metoprolol, so we will administer only half the dose of what she usually takes in order to control rate. We will follow-up with the patient the morning. - Problems/Diagnosis (1) Severe dehydration Problem: Resolved (2) Atrial fibrillation Problem: Chronic (3) Chronic renal insufficiency, stage IV (severe) Problem: Chronic (4) UTI (urinary tract infection) Problem: Acute Qualifiers: (5) Hypotension Problem: Resolved Qualifiers: (6) Acute kidney injury Problem: Acute (7) Hypokalemia Problem: Acute (8) Orthostatic hypotension Problem: Resolved (9) Dilated cardiomyopathy Problem: Chronic (10) Chronic atrial fibrillation with rapid ventricular response Problem: Chronic (11) Ischemic cardiomyopathy Problem: Chronic (12) Cardiovascular disease Problem: Chronic (13) Hypothyroidism Problem: Chronic Qualifiers: (14) Abnormal thyroid function test Problem: Acute (15) Hyponatremia Problem: Acute (16) Atrial fibrillation with RVR Problem: Acute
[2020-08-20 11:51] LABS: Prothrombin Time (Patient) 10.9 Seconds (9.1-10.7)
[2020-08-20 11:52] LABS: INR 1.05 INR (0.92-1.08)
[2020-08-20] MEDS: WARFARIN SODIUM 5 MG TABLET PO SCH (16:37)
[2020-08-20] MEDS: ENOXAPARIN SODIUM 30 MG/0.3 ML SYRG SC SCH (16:38)
[2020-08-20] MEDS: VENLAFAXINE HCL 37.5 MG CAP.SR.24H PO SCH (21:14)
[2020-08-20] MEDS: ROSUVASTATIN CALCIUM 5 MG TABLET PO SCH (21:15)
[2020-08-21 06:33] LABS: Hematocrit 35.4 % (37.0-47.0); Hemoglobin 11.6 gm/dL (12.5-16.0); Mean Cell Volume 85.1 fl (78-100); Mean Corpuscular Hemoglobin 27.9 pg (27-31); Mean Corpuscular Hgb Conc 32.8 g/dl (32-36); Mean Platelet Volume 9.6 fl (8-12.5); Neutrophil # 3.6 K/mm3 (1.3-6.0); Neutrophil % 60.7 % (42-75.0); Platelet Count 217 K/mm3 (150-450); Red Blood Count 4.16 M/mm3 (4.2-5.4); Red Cell Distribution Width 15.3 % (11.5-14.0)
[2020-08-21 06:39] LABS: Prothrombin Time (Patient) 11.1 Seconds (9.1-10.7)
[2020-08-21] MEDS: PANTOPRAZOLE SODIUM 20 MG TABLET.DR PO SCH ×2 (06:51→20:11)
[2020-08-21 06:54] LABS: Albumin * 2.8 gm/dl (3.4-5.0); Anion Gap 13.3 mmol/L (6.8-13.8); BUN/Creatinine Ratio 14.1 (9.0-21.6); Bilirubin, Total 0.5 mg/dL (0.0-1.1); Ca. Corrected For Albumin 7.7 mg/dL (8.4-10.2); Calcium * 7.1 mg/dL (7.9-10.9); Total Protein 6.4 gm/dL (6.2-8.2)
[2020-08-21 07:00] LABS: Potassium 2.3 mmol/L (3.4-4.6)
[2020-08-21 07:01] LABS: INR 1.07 INR (0.92-1.08)
[2020-08-21] MEDS: CHOLECALCIFEROL 1,000 UNIT CAPSULE PO SCH (08:47)
[2020-08-21] MEDS: POTASSIUM CHLORIDE 20 MEQ TABLET.SA PO SCH ×3 (08:47→16:28)
[2020-08-21] MEDS: METOPROLOL TARTRATE 25 MG TABLET PO SCH ×2 (08:48→20:15)
[2020-08-21] MEDS: rOPINIRole HCL 1 MG TABLET PO SCH (08:48)
[2020-08-21] MEDS: SACCHAROMYCES BOULARDII 250 MG CAPSULE PO SCH (08:48)
[2020-08-21] MEDS: CLOPIDOGREL BISULFATE 75 MG TABLET PO SCH (08:48)
[2020-08-21] MEDS: DOCUSATE SODIUM 100 MG CAPSULE PO SCH (08:48)
[2020-08-21] MEDS: CIPROFLOXACIN HCL 250 MG TABLET PO SCH ×2 (08:48→20:11)
--- NOTE | 2020-08-21 10:52 | PN ---
Subjective - Date and Time Seen Date: 08/21/20 Time: 10:46 Subjective Narrative: I feel better this morning, I have more strength and energy. Objective Objective Narrative: 69-year-old female admitted for dehydration with hypokalemia and hyponatremia and MOHAMUD superimposed on CKD and UTI was evaluated at bedside and was found to be afebrile and in no acute distress. Patient continues to show significant improvement. She reports having more energy when up and about going to the bathroom compared to before and denies any recurrence of lightheadedness. Lab this morning revealed significant provement her potassium level although she is still medical, so we will order additional potassium replacements. Hyponatremia has completely resolved and her renal function is also improving. These signs are encouraging and her getting is closer to discharging the patient home. In the meantime we will repeat labs in the morning for evaluation of potassium levels and renal function in order to determine if she is able to go home tomorrow. - Review of Systems Generalized/Overall Review: Reports: No Symptoms Reported EENTM: Reports: No Symptoms Reported Respiratory: Reports: No Symptoms Reported Cardiac: Reports: No Symptoms Reported Abdominal: Reports: No Symptoms Reported Genitourinary Symptoms: Reports: No Symptoms Reported Musculoskeletal Complaints: Reports: No Symptoms Reported Neurological: Reports: No Symptoms Reported Skin: Reports: No Symptoms Reported Endocrine: Reports: No Symptoms Reported - Vitals Vitals: Last Vital Signs Temp 36.5 C 08/21/20 10:09 Pulse 85 08/21/20 10:09 Resp 16 08/21/20 10:09 BP 115/70 08/21/20 10:09 Pulse Ox 97 08/21/20 10:09 - Abnormal Lab Findings Abnormal Lab Findings: Abnormal Lab Results 08/20/20 08/21/20 08/21/20 Range/Units 06:40 06:25 06:25 RBC 4.16 L (4.2-5.4) M/mm3 Hgb 11.6 L (12.5-16.0) gm/dL Hct 35.4 L (37.0-47.0) % RDW 15.3 H (11.5-14.0) % Immature Gran % (Auto) 0.50 H (0.001-0.429) % Eosinophils % 3.9 H (0.0-3.0) % PT 10.9 H (9.1-10.7) Seconds Potassium 2.3 L* D (3.4-4.6) mmol/L Chloride 96 L (97-106) mmol/L BUN 29 H (3-23) mg/dL Creatinine 2.05 H (0.4-1.4) mg/dL Est GFR (Non-Af Amer) 26 L (60-130) mL/min Calcium 7.1 L (7.9-10.9) mg/dL Calcium Adj for Albumin 7.7 L (8.4-10.2) mg/dL ALT 17 L (19-67) U/L Albumin 2.8 L (3.4-5.0) gm/dl 08/21/20 Range/Units 06:25 RBC (4.2-5.4) M/mm3 Hgb (12.5-16.0) gm/dL Hct (37.0-47.0) % RDW (11.5-14.0) % Immature Gran % (Auto) (0.001-0.429) % Eosinophils % (0.0-3.0) % PT 11.1 H (9.1-10.7) Seconds Potassium (3.4-4.6) mmol/L Chloride (97-106) mmol/L BUN (3-23) mg/dL Creatinine (0.4-1.4) mg/dL Est GFR (Non-Af Amer) (60-130) mL/min Calcium (7.9-10.9) mg/dL Calcium Adj for Albumin (8.4-10.2) mg/dL ALT (19-67) U/L Albumin (3.4-5.0) gm/dl - Exam Constitutional: Present: Alert, Oriented x3, Cooperative, Well developed, No distress, Elderly ENT Exam: Present: normal ENT inspection, hearing grossly normal Neck: Present: non-tender, full range of motion, supple, normal inspection, trachea midline Breasts: Present: Exam deferred, Nontender Respiratory: Present: chest non-tender, no respiratory distress, no accessory muscle use, crackles - Fine crackles on left lung base Cardiovascular/Chest: Present: normal peripheral pulses, no chest tenderness, no edema, no gallop, no JVD, no murmur, no rub, irregularly irregular Abdomen: Present: Normal bowel sounds, soft, nontender, nondistended, no rebound tenderness, no hepatospenomegaly, no masses /Rectal: Present: Exam deferred Extremity: Present: non-tender, no pedal edema, no calf tenderness, normal capillary refill, pelvis stable, other - Left BKA Skin Exam: Present: normal color, warm/dry, no cyanosis Lymphatic: Present: no adenopathy Neurologic: Present: dairy scientist II-XII nml as tested, no motor/sensory deficits, alert, normal mood/affect, oriented x 3 Appearance: Present: appropriate appearance, appropriate insight, neat, no me [place] impairment Eye contact: Present: cooperative, good eye contact, normal speech Thoughts: Present: normal thought pattern, no apparent hallucination Assessment/Plan Plan Narrative: We will administer additional potassium supplementation to the patient and repeat labs in the morning to reevaluate electrolytes and kidney function. She was found to have mild crackles on the left lung base during bedside evaluation this morning so we will hold IV fluids for now. Her potassium was resumed yesterday morning at half dose and is so far controlling her heart rate without compromising her blood pressure. - Problems/Diagnosis (1) Severe dehydration Problem: Resolved (2) Atrial fibrillation Problem: Chronic (3) Chronic renal insufficiency, stage IV (severe) Problem: Chronic (4) UTI (urinary tract infection) Problem: Acute Qualifiers: (5) Hypotension Problem: Resolved Qualifiers: (6) Acute kidney injury Problem: Acute (7) Hypokalemia Problem: Acute (8) Orthostatic hypotension Problem: Resolved (9) Dilated cardiomyopathy Problem: Chronic (10) Chronic atrial fibrillation with rapid ventricular response Problem: Chronic (11) Ischemic cardiomyopathy Problem: Chronic (12) Cardiovascular disease Problem: Chronic (13) Hypothyroidism Problem: Chronic Qualifiers: (14) Abnormal thyroid function test Problem: Acute (15) Hyponatremia Problem: Acute (16) Atrial fibrillation with RVR Problem: Acute
[2020-08-21] MEDS: POTASSIUM CHLORIDE IN WATER 100 ML IV SCH ×8 (11:11→18:43)
[2020-08-21] MEDS: LEVOTHYROXINE SODIUM 112 MCG TABLET PO SCH (11:14)
[2020-08-21] MEDS: WARFARIN SODIUM 5 MG TABLET PO SCH (16:28)
[2020-08-21] MEDS: ENOXAPARIN SODIUM 30 MG/0.3 ML SYRG SC SCH (16:28)
[2020-08-21] MEDS: ROSUVASTATIN CALCIUM 5 MG TABLET PO SCH (20:10)
[2020-08-22 06:27] LABS: Prothrombin Time (Patient) 12.7 Seconds (9.1-10.7)
[2020-08-22 06:34] LABS: INR 1.23 INR (0.92-1.08)
[2020-08-22 06:35] LABS: Albumin * 2.8 gm/dl (3.4-5.0); Anion Gap 13.1 mmol/L (6.8-13.8); BUN/Creatinine Ratio 9.4 (9.0-21.6); Bilirubin, Total 0.5 mg/dL (0.0-1.1); Ca. Corrected For Albumin 7.8 mg/dL (8.4-10.2); Calcium * 7.2 mg/dL (7.9-10.9); Carbon Dioxide 28.6 mmol/L (24-32.6); Potassium 2.7 mmol/L (3.4-4.6); Total Protein 6.4 gm/dL (6.2-8.2)
[2020-08-22] MEDS: LEVOTHYROXINE SODIUM 112 MCG TABLET PO SCH (07:07)
[2020-08-22] MEDS: PANTOPRAZOLE SODIUM 20 MG TABLET.DR PO SCH ×2 (07:07→20:26)
[2020-08-22] MEDS: POTASSIUM CHLORIDE 20 MEQ TABLET.SA PO SCH ×3 (09:02→17:07)
[2020-08-22] MEDS: CLOPIDOGREL BISULFATE 75 MG TABLET PO SCH (09:03)
[2020-08-22] MEDS: SACCHAROMYCES BOULARDII 250 MG CAPSULE PO SCH (09:03)
[2020-08-22] MEDS: rOPINIRole HCL 1 MG TABLET PO SCH (09:03)
[2020-08-22] MEDS: CHOLECALCIFEROL 1,000 UNIT CAPSULE PO SCH (09:03)
[2020-08-22] MEDS: METOPROLOL TARTRATE 25 MG TABLET PO SCH ×2 (09:04→20:26)
[2020-08-22] MEDS: DOCUSATE SODIUM 100 MG CAPSULE PO SCH (09:04)
[2020-08-22] MEDS: CIPROFLOXACIN HCL 250 MG TABLET PO SCH ×2 (09:04→20:25)
[2020-08-22] MEDS: POTASSIUM CHLORIDE IN WATER 100 ML IV SCH ×8 (10:31→18:10)
--- NOTE | 2020-08-22 14:23 | PN ---
Subjective - Date and Time Seen Date: 08/22/20 Time: 14:18 Subjective Narrative: I feel better, just want to go home Objective Objective Narrative: 69-year-old female admitted for dehydration with hypokalemia and hypon atremia and MOHAMUD superimposed on CKD and UTI was evaluated at bedside and was found to be afebrile and in no acute distress. Patient continues to show significant improvement. However her hypokalemia although it has improved has not completely resolved despite additional doses of potassium replacement. We will keep the patient additional day to continue replacing her potassium and for additional IV hydration for acute kidney injury. - Review of Systems Generalized/Overall Review: Reports: No Symptoms Reported EENTM: Reports: No Symptoms Reported Respiratory: Reports: No Symptoms Reported Cardiac: Reports: No Symptoms Reported Abdominal: Reports: No Symptoms Reported Genitourinary Symptoms: Reports: No Symptoms Reported Musculoskeletal Complaints: Reports: No Symptoms Reported Neurological: Reports: No Symptoms Reported Skin: Reports: No Symptoms Reported Endocrine: Reports: No Symptoms Reported - Vitals Vitals: Last Vital Signs Temp 37.0 C 08/22/20 12:11 Pulse 104 H 08/22/20 12:11 Resp 18 08/22/20 12:11 BP 103/76 08/22/20 12:11 Pulse Ox 96 08/22/20 12:11 - Abnormal Lab Findings Abnormal Lab Findings: Abnormal Lab Results 08/22/20 08/22/20 Range/Units 06:13 06:13 PT 12.7 H (9.1-10.7) Seconds INR (Anticoag Therapy) 1.23 H (0.92-1.08) INR Potassium 2.7 L (3.4-4.6) mmol/L Creatinine 1.80 H (0.4-1.4) mg/dL Est GFR (Non-Af Amer) 30 L (60-130) mL/min Calcium 7.2 L (7.9-10.9) mg/dL Calcium Adj for Albumin 7.8 L (8.4-10.2) mg/dL ALT 18 L (19-67) U/L Albumin 2.8 L (3.4-5.0) gm/dl - Exam Constitutional: Present: Alert, Oriented x3, Cooperative, Well nourished, No distress, Elderly ENT Exam: Present: normal ENT inspection, hearing grossly normal Neck: Present: non-tender, full range of motion, supple, normal inspection, trachea midline Breasts: Present: Exam deferred, Nontender Respiratory: Present: chest non-tender, lungs clear, normal breath sounds, no respiratory distress, no accessory muscle use, respiratory distress Cardiovascular/Chest: Present: normal peripheral pulses, no chest tenderness, no edema, no gallop, no JVD, no murmur, no rub, irregularly irregular Abdomen: Present: Normal bowel sounds, soft, nontender, nondistended, no rebound tenderness, no hepatospenomegaly, no masses /Rectal: Present: Exam deferred Extremity: Present: normal range of motion, non-tender, normal inspection, no pedal edema, no calf tenderness, normal capillary refill, other - Left BKA Skin Exam: Present: normal color, warm/dry Lymphatic: Present: no adenopathy Neurologic: Present: fur glosser II-XII nml as tested, no motor/sensory deficits, alert, normal mood/affect, oriented x 3 Appearance: Present: appropriate appearance, appropriate insight, neat, no memory impairment Eye contact: Present: cooperative, good eye contact, normal speech Thoughts: Present: normal thought pattern, no apparent hallucination Assessment/Plan Plan Narrative: Additional doses of potassium replacement has been ordered and repeat labs in the morning was also ordered to reevaluate electrolytes and renal function. - Problems/Diagnosis (1) Severe dehydration Problem: Resolved (2) Atrial fibrillation Problem: Chronic (3) Chronic renal insufficiency, stage IV (severe) Problem: Chronic (4) UTI (urinary tract infection) Problem: Acute Qualifiers: (5) Hypotension Problem: Resolved Qualifiers: (6) Acute kidney injury Problem: Acute (7) Hypokalemia Problem: Acute (8) Orthostatic hypotension Problem: Resolved (9) Dilated cardiomyopathy Problem: Chronic (10) Chronic atrial fibrillation with rapid ventricular response Problem: Resolved (11) Ischemic cardiomyopathy Problem: Chronic (12) Cardiovascular disease Problem: Chronic (13) Hypothyroidism Problem: Chronic Qualifiers: (14) Abnormal thyroid function test Problem: Acute (15) Hyponatremia Problem: Resolved (16) Atrial fibrillation with RVR Problem: Acute
[2020-08-22] MEDS: WARFARIN SODIUM 5 MG TABLET PO SCH (17:07)
[2020-08-22] MEDS: ENOXAPARIN SODIUM 30 MG/0.3 ML SYRG SC SCH (17:08)
[2020-08-22] MEDS: ROSUVASTATIN CALCIUM 5 MG TABLET PO SCH (20:24)
[2020-08-22] MEDS: VENLAFAXINE HCL 37.5 MG CAP.SR.24H PO SCH (20:25)
[2020-08-22] MEDS ORDERED: POTASSIUM CHLORIDE IN WATER 100 ML IV SCH (20:45)
[2020-08-22 21:50] LABS: Albumin * 2.8 gm/dl (3.4-5.0); Anion Gap 13.1 mmol/L (6.8-13.8); BUN/Creatinine Ratio 7.8 (9.0-21.6); Bilirubin, Total 0.4 mg/dL (0.0-1.1); Ca. Corrected For Albumin 7.7 mg/dL (8.4-10.2); Calcium * 7.1 mg/dL (7.9-10.9); Carbon Dioxide 28.1 mmol/L (24-32.6); Potassium 4.2 mmol/L (3.4-4.6); Total Protein 6.3 gm/dL (6.2-8.2)
[2020-08-23 06:12] LABS: Prothrombin Time (Patient) 15.5 Seconds (9.1-10.7)
[2020-08-23 06:14] LABS: INR 1.52 INR (0.92-1.08)
[2020-08-23 06:19] LABS: Albumin * 2.7 gm/dl (3.4-5.0); Anion Gap 12.5 mmol/L (6.8-13.8); BUN/Creatinine Ratio 7.1 (9.0-21.6); Bilirubin, Total 0.3 mg/dL (0.0-1.1); Ca. Corrected For Albumin 7.9 mg/dL (8.4-10.2); Calcium * 7.2 mg/dL (7.9-10.9); Carbon Dioxide 26.9 mmol/L (24-32.6); Potassium 4.4 mmol/L (3.4-4.6); Total Protein 6.2 gm/dL (6.2-8.2)
[2020-08-23] MEDS: PANTOPRAZOLE SODIUM 20 MG TABLET.DR PO SCH (06:44)
[2020-08-23] MEDS: LEVOTHYROXINE SODIUM 112 MCG TABLET PO SCH (06:44)
[2020-08-23] MEDS: rOPINIRole HCL 1 MG TABLET PO SCH (09:00)
[2020-08-23] MEDS ORDERED: METOPROLOL TARTRATE 50 MG TABLET PO SCH (09:00)
[2020-08-23] MEDS: POTASSIUM CHLORIDE 20 MEQ TABLET.SA PO SCH (09:00)
[2020-08-23] MEDS: SACCHAROMYCES BOULARDII 250 MG CAPSULE PO SCH (09:00)
[2020-08-23] MEDS: CHOLECALCIFEROL 1,000 UNIT CAPSULE PO SCH (09:00)
[2020-08-23] MEDS: DOCUSATE SODIUM 100 MG CAPSULE PO SCH (09:01)
[2020-08-23] MEDS: CIPROFLOXACIN HCL 250 MG TABLET PO SCH (09:01)
[2020-08-23] MEDS: CLOPIDOGREL BISULFATE 75 MG TABLET PO SCH (09:03)
--- NOTE | 2020-08-23 10:47 | DS ---
(1) Severe dehydration Problem: Resolved (2) Atrial fibrillation Problem: Chronic (3) Chronic renal insufficiency, stage IV (severe) Problem: Chronic (4) UTI (urinary tract infection) Problem: Ruled-out Qualifiers: (5) Hypotension Problem: Resolved Qualifiers: (6) Acute kidney injury Problem: Resolved (7) Hypokalemia Problem: Resolved (8) Orthostatic hypotension Problem: Resolved (9) Dilated cardiomyopathy Problem: Chronic (10) Chronic atrial fibrillation with rapid ventricular response Problem: Resolved (11) Ischemic cardiomyopathy Problem: Chronic (12) Cardiovascular disease Problem: Chronic (13) Hypothyroidism Problem: Chronic Qualifiers: (14) Abnormal thyroid function test Problem: Acute (15) Hyponatremia Problem: Resolved (16) Atrial fibrillation with RVR Problem: Resolved Date of Discharge:: 08/23/20 Hospital Course: 69-year-old female admitted for severe dehydration with orthostatic hypotension, MOHAMUD on CKD, electrolyte imbalance of hyponatremia and hypokalemia, and A. fib with RVR was evaluated at bedside this morning and was found to be afebrile and in no acute distress. Patient has shown significant clinical improvement and is in good spirits this morning. Her hypokalemia has finally resolved after multiple doses of potassium replacement, her hyponatremia has also resolved and her dehydration has been addressed. The patient reports feeling better stronger and is able to ambulate without feeling weak and lightheaded. She expresses a desire to go home and I am in agreement that she is in good enough condition to go, so I will discharge her home with home health with [facility] home health services where she will receive nursing care to manage her medications and monitor her vitals. She will also get an aide to assist with her activities of daily living such as showering and meal prep since the patient lives alone. The patient also will leave with instructions to establish with her new doctor legend maker to manage her multiple chronic complex conditions for optimization of her health. This morning her metoprolol was resumed at its original dose and she is tolerating without any issues, blood pressure is stable and her tachycardia has improved. This patient is homebound due to limited ambulation secondary to a left below the knee amputation and severe problems with balance. The need for home health care skilled services is directly related to the time spent [id number] with the patient. Procedures Performed: none Results and Findings: Lab Pending Results 08/18/20 11:45: Magnesium 1.8 08/18/20 12:10: WBC 11.5 H, RBC 4.76, Hgb 13.4, Hct 38.6, MCV 81.1, MCH 28.2, MCHC 34.7, RDW 14.6 H, Plt Count 296, MPV 9.5, Immature Gran % (Auto) 0.40, Immature Gran # (Auto) 0.05 H, Neutrophils % 82.0 H, Lymphocytes % 10.8 L, Monocytes % 6.2, Eosinophils % 0.3, Basophils % 0.3, Nucleated RBC % 0.0, Neutrophils # 9.4 H, Lymphocytes # 1.24 L, Monocytes # 0.7, Eosinophils # 0.0, Absolute Basophils 0.0 08/18/20 12:10: Sodium 128 L, Plasma Sodium 128 L, Potassium 1.4 L* D, Chloride 83 L, Carbon Dioxide 32.9 H, Anion Gap 13.5, BUN 77 H D, Creatinine 2.72 H D, Est GFR (Non-Af Amer) 18 L D, BUN/Creatinine Ratio 28.3 H, Random Glucose 108, Calcium 7.9, Calcium Adj for Albumin 8.1 L, Total Bilirubin 0.9, AST 28, ALT 20, Alkaline Phosphatase 139, Troponin I 0.061, Total Protein 8.0, Albumin 3.4, TSH 4.628 H, Free T4 1.58 H 08/18/20 12:45: Urine Color Yellow, Urine Appearance Cloudy, Urine pH 5.5, Ur Specific [place] 1.010, Urine Protein Negative, Urine Glucose (UA) Negative, Urine Ketones Negative, Urine Blood 10 H, Urine Nitrate Negative, Urine Bilirubin Negative, Urine Urobilinogen Normal, Ur Leukocyte Esterase 75 H, Urine RBC 0-5, Urine WBC 5-10 H, Ur Epithelial Cells 0-5, Urine Bacteria Trace, Urine Culture Comments Culture to follow 08/18/20 13:30: SARS-CoV-2 (PCR) Not detected 08/18/20 21:01: Sodium 129 L, Plasma Sodium 129 L, Potassium 1.5 L*, Chloride 87 L, Carbon Dioxide 31.9, Anion Gap 11.6, BUN 74 H, Creatinine 2.82 H, Est GFR (Non-Af Amer) 18 L, BUN/Creatinine Ratio 26.2 H, Random Glucose 114 H, Calcium 7.4 L, Calcium Adj for Albumin 7.8 L, Total Bilirubin 0.9, AST 23, ALT 15 L, Alkaline Phosphatase 124, Total Protein 7.1, Albumin 3.1 L 08/19/20 05:40: Sodium 132, Plasma Sodium 132, Potassium 1.6 L*, Chloride 91 L, Carbon Dioxide 31.9, Anion Gap 10.7, BUN 68 H, Creatinine 2.62 H, Est GFR (Non- Af Amer) 19 L, BUN/Creatinine Ratio 26.0 H, Random Glucose 107, Calcium 7.0 L, Calcium Adj for Albumin 7.5 L, Total Bilirubin 0.7, AST 28, ALT 17 L, Alkaline Phosphatase 122, Total Protein 6.3, Albumin 3.0 L 08/19/20 05:40: Magnesium 1.5 08/20/20 06:40: Sodium 134, Plasma Sodium 134, Potassium 1.7 L*, Chloride 89 L, Carbon Dioxide 31.1, Anion Gap 15.6 H, BUN 42 H, Creatinine 2.14 H D, Est GFR (Non-Af Amer) 24 L D, BUN/Creatinine Ratio 19.6, Random Glucose 108, Calcium 7.5 L, Calcium Adj for Albumin 7.9 L, Total Bilirubin 0.7, AST 27, ALT 17 L, Alkaline Phosphatase 114, Total Protein 7.0, Albumin 3.1 L 08/20/20 06:40: PT 10.9 H, INR (Anticoag Therapy) 1.05 08/21/20 06:25: Sodium 137, Plasma Sodium 137, Potassium 2.3 L* D, Chloride 96 L, Carbon Dioxide 30.0, Anion Gap 13.3, BUN 29 H, Creatinine 2.05 H, Est GFR (Non-Af Amer) 26 L, BUN/Creatinine Ratio 14.1, Random Glucose 98, Calcium 7.1 L, Calcium Adj for Albumin 7.7 L, Total Bilirubin 0.5, AST 29, ALT 17 L, Alkaline Phosphatase 101, Total Protein 6.4, Albumin 2.8 L 08/21/20 06:25: WBC 6.0 D, RBC 4.16 L, Hgb 11.6 L, Hct 35.4 L, MCV 85.1, MCH 27.9, MCHC 32.8, RDW 15.3 H, Plt Count 217, MPV 9.6, Immature Gran % (Auto) 0.50 H, Immature Gran # (Auto) 0.03, Neutrophils % 60.7, Lymphocytes % 26.8, M onocytes % 7.4, Eosinophils % 3.9 H, Basophils % 0.7, Nucleated RBC % 0.0, Neutrophils # 3.6, Lymphocytes # 1.60, Monocytes # 0.4, Eosinophils # 0.2, Absolute Basophils 0.0 08/21/20 06:25: PT 11.1 H, INR (Anticoag Therapy) 1.07 08/22/20 06:13: PT 12.7 H, INR (Anticoag Therapy) 1.23 H 08/22/20 06:13: Sodium 137, Plasma Sodium 137, Potassium 2.7 L, Chloride 98, Carbon Dioxide 28.6, Anion Gap 13.1, BUN 17, Creatinine 1.80 H, Est GFR (Non-Af Amer) 30 L, BUN/Creatinine Ratio 9.4, Random Glucose 94, Calcium 7.2 L, Calcium Adj for Albumin 7.8 L, Total Bilirubin 0.5, AST 30, ALT 18 L, Alkaline Phosphatase 100, Total Protein 6.4, Albumin 2.8 L 08/22/20 21:33: Sodium 141, Plasma Sodium 141, Potassium 4.2 D, Chloride 104, Carbon Dioxide 28.1, Anion Gap 13.1, BUN 14, Creatinine 1.79 H, Est GFR (Non-Af Amer) 30 L, BUN/Creatinine Ratio 7.8 L, Random Glucose 105, Calcium 7.1 L, Calcium Adj for Albumin 7.7 L, Total Bilirubin 0.4, AST 31, ALT 20, Alkaline Phosphatase 105, Total Protein 6.3, Albumin 2.8 L 08/23/20 05:45: PT 15.5 H, INR (Anticoag Therapy) 1.52 H 08/23/20 05:45: Sodium 140, Plasma Sodium 140, Potassium 4.4, Chloride 105, Carbon Dioxide 26.9, Anion Gap 12.5, BUN 12, Creatinine 1.70 H, Est GFR (Non-Af Amer) 32 L, BUN/Creatinine Ratio 7.1 L, Random Glucose 92, Calcium 7.2 L, Calcium Adj for Albumin 7.9 L, Total Bilirubin 0.3, AST 32, ALT 20, Alkaline Phosphatase 99, Total Protein 6.2, Albumin 2.7 L Discharge Location: Home Disposition: Home Health Service Home Health Agency: [facility] [place] Home Health Condition: Stable Face to Face Encounter completed per CMS Guidelines: Yes Discharge Activity: Activity as tolerated Discharge Diet: General/regular food, Low salt Referrals: Swetha Villarreal MD [Staff Physician] - Additional Patient Instructions (free text): [facility] [place] Home Health new at discharge, fax discharge summary, orders, med list, and call report. Home Health nurse to draw PT/INR and call results to coumadin clinic. INR on (08/26) Prescriptions (Any new or edited meds): Warfarin Sodium [Coumadin] 5 mg PO DAILY@1700 #15 tab Transmission Status: Pending to [facility] Furosemide [Lasix] 20 mg PO DAILY #15 tab Transmission Status: Pending to [facility] Complete Home Medications List: Complete Home Medication List: venlafaxine 75 mg capsule,extended release 24 hr 75 mg PO Q48H #30 cap 12/08/19 potassium chloride 10 mEq tablet,extended release 10 meq PO DAILY 06/01/20 metoprolol tartrate 50 mg tablet 50 mg PO BID #60 tab 07/14/20 Atorvastatin Calcium [Lipitor] 10 mg PO DAILY 08/18/20 Cholecalciferol [Vitamin D] 1,000 unit PO DAILY 08/18/20 Clopidogrel Bisulfate [Plavix] 75 mg PO DAILY 08/18/20 Docusate Sodium [Dok] 100 mg PO DAILY 08/18/20 Levothyroxine Sodium [Synthroid] 112 mcg PO DAILY 08/18/20 Pantoprazole Sodium [Protonix] 40 mg PO DAILY 08/18/20 Saccharomyces Boulardii [Probiotic] 500 mg PO DAILY 08/18/20 rOPINIRole HCL [Requip] 1 mg PO DAILY 08/18/20 Furosemide [Lasix] 20 mg PO DAILY #15 tab 08/23/20 Metoprolol Tartrate [Lopressor] 50 mg PO BID tablet 08/23/20 Warfarin Sodium [Coumadin] 5 mg PO DAILY@1700 #15 tab 08/23/20 Forms: Patient Portal Registration
[2020-08-23 11:03] VITALS: BP 114/80
== END 2020-08-23 11:08 | disposition home health service (06) | DRG 683 ==
LOC: ER 11:30 → MS 15:20
PROVIDERS: ADMIT Family Medicine; ATTEND Family Medicine
DX: I12.9 Hypertensive chronic kidney disease with stage 1 through stage 4 chronic kidney disease, or unspecified chronic kidney disease; I95.1 Orthostatic hypotension; I48.91 Unspecified atrial fibrillation; E87.1 Hypo-osmolality and hyponatremia; N17.9 Acute kidney failure, unspecified; E86.0 Dehydration; I42.0 Dilated cardiomyopathy; E87.6 Hypokalemia; Z87.891 Personal history of nicotine dependence; R94.6 Abnormal results of thyroid function studies; N18.4 Chronic kidney disease, stage 4 (severe); I25.5 Ischemic cardiomyopathy

== ENCOUNTER 2020-11-29 08:23 | Inpatient (IN) ==
[2020-11-29] MEDS ORDERED: ONDANSETRON HCL/PF 2 MG/ML VIAL IV ONE (08:55)
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
[2020-11-29] MEDS ORDERED: PANTOPRAZOLE SODIUM 40 MG/100 ML PIGGYBACK IV ONE (08:56)
[2020-11-29 09:11] LABS: Hematocrit 34.6 % (37.0-47.0); Hemoglobin 11.4 gm/dL (12.5-16.0); Mean Corpuscular Hgb Conc 32.9 g/dl (32-36); Mean Platelet Volume 10.9 fl (8-12.5); Neutrophil % 82.1 % (42-75.0); Platelet Count 354 K/mm3 (150-450); Red Blood Count 4.38 M/mm3 (4.2-5.4); Red Cell Distribution Width 14.5 % (11.5-14.0); White Blood Count 13.4 K/mm3 (4.0-10.5)
[2020-11-29 09:40] LABS: Prothrombin Time (Patient) 33.8 Seconds (9.1-10.7)
[2020-11-29 09:41] LABS: INR 3.45 INR (0.92-1.08); Partial Thrombolplastin Time 47.2 Seconds (24-32)
[2020-11-29 09:45] LABS: Urine Bilirubin Negative (NEGATIVE); Urine Blood Negative /ul (NEGATIVE); Urine Ketone Negative (NEGATIVE); Urine Nitrite Negative (NEGATIVE); Urine Protein Negative (NEGATIVE); Urine Urobilinogen Normal (NORMAL)
[2020-11-29 09:52] LABS: Urine Appearance Slightly Cloudy (CLEAR); Urine Bacteria 3+; Urine Color Yellow; Urine RBC None Seen /hpf (0-5); Urine WBC 0-5 /hpf (0-5)
[2020-11-29 09:57] LABS: Albumin * 3.8 gm/dl (3.4-5.0); Anion Gap 14.6 mmol/L (6.8-13.8); BUN/Creatinine Ratio 26.7 (9.0-21.6); Bilirubin, Total 0.8 mg/dL (0.0-1.1); Ca. Corrected For Albumin 8.8 mg/dL (8.4-10.2); Carbon Dioxide 34.8 mmol/L (24-32.6); Total Protein 8.5 gm/dL (6.2-8.2)
[2020-11-29 10:04] LABS: Potassium 2.4 mmol/L (3.4-4.6)
[2020-11-29] MEDS ORDERED: CIPROFLOXACIN IN 5 % DEXTROSE 200 MG/100 ML BAG IV SCH (10:30)
[2020-11-29] MEDS: NORMAL SALINE 1,000 ML IV PRN (11:00)
[2020-11-29] MEDS: POTASSIUM CHLORIDE IN WATER 100 ML IV SCH ×5 (11:01→17:57)
[2020-11-29] MEDS ORDERED: WARFARIN SODIUM 2.5 MG TABLET PO SCH (17:00)
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
[2020-11-29] MEDS: VENLAFAXINE HCL 37.5 MG CAP.SR.24H PO SCH (17:56)
[2020-11-29] MEDS ORDERED: ACETAMINOPHEN 325 MG TABLET PO PRN (19:36)
[2020-11-29] MEDS: ROSUVASTATIN CALCIUM 5 MG TABLET PO SCH (20:26)
[2020-11-29] MEDS: METOPROLOL TARTRATE 50 MG TABLET PO SCH (20:27)
[2020-11-30] MEDS: LEVOTHYROXINE SODIUM 137 MCG TABLET PO SCH (06:55)
[2020-11-30] MEDS ORDERED: POTASSIUM CHLORIDE 20 MEQ/15 ML UDC PO SCH (07:01)
[2020-11-30 07:33] LABS: Prothrombin Time (Patient) 34.4 Seconds (9.1-10.7)
[2020-11-30 07:36] LABS: INR 3.51 INR (0.92-1.08)
[2020-11-30 07:41] LABS: Anion Gap 11.4 mmol/L (6.8-13.8); BUN/Creatinine Ratio 25.2 (9.0-21.6); Calcium * 8.7 mg/dL (7.9-10.9); Carbon Dioxide 33.6 mmol/L (24-32.6); Estimated Creat Clear 18.6
[2020-11-30] MEDS ORDERED: FUROSEMIDE 80 MG TABLET PO SCH (09:00)
[2020-11-30] MEDS: CLOPIDOGREL BISULFATE 75 MG TABLET PO SCH (09:30)
[2020-11-30] MEDS: ASPIRIN 81 MG TABLET.DR PO SCH (09:30)
[2020-11-30] MEDS: METOPROLOL TARTRATE 50 MG TABLET PO SCH ×2 (09:30→20:18)
[2020-11-30] MEDS: SACCHAROMYCES BOULARDII 250 MG CAPSULE PO SCH (09:30)
[2020-11-30] MEDS: DOCUSATE SODIUM 100 MG CAPSULE PO SCH (09:30)
[2020-11-30] MEDS: POTASSIUM CHLORIDE 20 MEQ TABLET.SA PO SCH ×3 (09:40→16:32)
[2020-11-30] MEDS: NORMAL SALINE 1,000 ML IV PRN ×2 (09:40→10:58)
[2020-11-30] MEDS: POTASSIUM CHLORIDE IN WATER 100 ML IV SCH ×6 (09:46→23:55)
[2020-11-30] MEDS ORDERED: POTASSIUM CHLORIDE 20 MEQ TABLET.SA PO SCH (13:00)
--- NOTE | 2020-11-30 13:16 | PN ---
Subjective - Date and Time Seen Date: 11/30/20 Time: 08:32 Subjective Narrative: She denies any more vomiting. She states she is feeling better today. Objective - Review of Systems Generalized/Overall Review: Denies: Fever Respiratory: Denies: Shortness of Breath Cardiac: Denies: Chest Pain Abdominal: Denies: Abdominal Pain Misc: All systems neg except as marked - Vitals Vitals: Last Vital Signs Temp 36.6 C 11/30/20 10:25 Pulse 97 11/30/20 10:25 Resp 16 11/30/20 10:25 BP 119/64 11/30/20 10:25 Pulse Ox 93 11/30/20 10:25 - Abnormal Lab Findings Abnormal Lab Findings: Abnormal Lab Results 11/30/20 11/30/20 Range/Units 06:50 06:50 PT 34.4 H (9.1-10.7) Seconds INR (Anticoag Therapy) 3.51 H (0.92-1.08) INR Sodium 125 L (132-142) mmol/L Plasma Sodium 125 L (130-142) mmol/L Potassium 2.0 L* (3.4-4.6) mmol/L Chloride 82 L (97-106) mmol/L Carbon Dioxide 33.6 H (24-32.6) mmol/L BUN 75 H (3-23) mg/dL Creatinine 2.98 H (0.4-1.4) mg/dL Est GFR (Non-Af Amer) 17 L (60-130) mL/min BUN/Creatinine Ratio 25.2 H (9.0-21.6) - Exam Constitutional: Present: Alert, Cooperative, Well developed, Well nourished, No distress, Elderly ENT Exam: Present: hearing grossly normal Neck: Present: non-tender, supple. Absent: lymphadenopathy (R), lymphadenopathy (L) Respiratory: Present: lungs clear Cardiovascular/Chest: Present: normal peripheral pulses, no edema, no murmur, irregularly irregular Abdomen: Present: Normal bowel sounds, soft, nontender Extremity: Present: no pedal edema, other - Left BKA Skin Exam: Present: normal color, warm/dry Neurologic: Present: alert, normal mood/affect Appearance: Present: appropriate appearance Eye contact: Present: cooperative Thoughts: Present: normal thought pattern Assessment/Plan Plan Narrative: 70-year-old female with a past medical history of atrial fibrillation on anticoagulation, hypertension, hypothyroidism, heart failure with reduced ejection fraction on Lasix, CKD 4, COPD, CVA, dilated cardiomyopathy, hyperlipidemia, status post left BKA presents from home with complaints of nausea, vomiting and abdominal pain for the past 5 days. She was admitted for hypokalemia of 2.4, hyponatremia of 125 and acute kidney injury with GFR of 17, creatinine of 2.96 and BUN of 79. She was also found to have a positive UA and was started on ceftriaxone. Plan #1 replete potassium aggressively with potassium chloride 40 mEq orally 3 times a day and 4 riders of potassium chloride 10 mEq IV. Repeat BMP later this afternoon. #2 IV fluid hydration at 75 cc/h. #3 hold Lasix for now until kidney function improves #4 resume home medications for comorbidities #5 CBC and CMP in the morning #6 VTE prophylaxis with warfarin - Problems/Diagnosis (1) Hyponatremia Problem: Resolved (2) Acute kidney injury Problem: Resolved (3) Hypokalemia due to excessive gastrointestinal loss of potassium Problem: Acute (4) UTI (urinary tract infection) Problem: Acute (5) Anxiety and depression Problem: Chronic (6) Heart failure with reduced ejection fraction and diastolic dysfunction Problem: Chronic (7) Atrial fibrillation Problem: Chronic Qualifiers: (8) Chronic renal insufficiency, stage IV (severe) Problem: Chronic (9) HLD (hyperlipidemia) Problem: Chronic (10) HTN (hypertension) Problem: Chronic Qualifiers: Hypertension type: essential hypertension Qualified Code(s): I10 - Essential (primary) hypertension (11) Hypothyroidism Problem: Chronic Qualifiers:
[2020-11-30 17:30] LABS: Albumin * 3.1 gm/dl (3.4-5.0); BUN/Creatinine Ratio 27.1 (9.0-21.6); Bilirubin, Total 0.4 mg/dL (0.0-1.1); Ca. Corrected For Albumin 8.5 mg/dL (8.4-10.2); Calcium * 8.1 mg/dL (7.9-10.9); Carbon Dioxide 34.5 mmol/L (24-32.6); Total Protein 7.3 gm/dL (6.2-8.2)
[2020-11-30 17:36] LABS: Potassium 2.5 mmol/L (3.4-4.6)
[2020-11-30] MEDS: ROSUVASTATIN CALCIUM 5 MG TABLET PO SCH (20:18)
[2020-11-30] MEDS: CIPROFLOXACIN IN 5 % DEXTROSE 200 MG/100 ML BAG IV SCH (21:49)
[2020-12-01] MEDS: NORMAL SALINE 1,000 ML IV PRN ×2 (01:02→14:24)
[2020-12-01] MEDS: POTASSIUM CHLORIDE IN WATER 100 ML IV SCH ×6 (01:04→17:46)
[2020-12-01] MEDS: LEVOTHYROXINE SODIUM 137 MCG TABLET PO SCH (06:28)
[2020-12-01 06:39] LABS: Hematocrit 30.7 % (37.0-47.0); Hemoglobin 9.5 gm/dL (12.5-16.0); Mean Cell Volume 83.7 fl (78-100); Mean Corpuscular Hemoglobin 25.9 pg (27-31); Mean Corpuscular Hgb Conc 30.9 g/dl (32-36); Mean Platelet Volume 10.5 fl (8-12.5); Neutrophil % 67.5 % (42-75.0); Platelet Count 304 K/mm3 (150-450); Red Blood Count 3.67 M/mm3 (4.2-5.4); Red Cell Distribution Width 14.6 % (11.5-14.0); White Blood Count 8.9 K/mm3 (4.0-10.5)
[2020-12-01 06:49] LABS: Prothrombin Time (Patient) 23.2 Seconds (9.1-10.7)
[2020-12-01 06:50] LABS: INR 2.32 INR (0.92-1.08)
[2020-12-01 07:08] LABS: Albumin * 3.1 gm/dl (3.4-5.0); Anion Gap 11.3 mmol/L (6.8-13.8); BUN/Creatinine Ratio 29.5 (9.0-21.6); Bilirubin, Total 0.4 mg/dL (0.0-1.1); Ca. Corrected For Albumin 8.5 mg/dL (8.4-10.2); Calcium * 8.1 mg/dL (7.9-10.9); Carbon Dioxide 32.5 mmol/L (24-32.6); Potassium 2.8 mmol/L (3.4-4.6); Total Protein 7.2 gm/dL (6.2-8.2)
[2020-12-01] MEDS: ASPIRIN 81 MG TABLET.DR PO SCH (08:51)
[2020-12-01] MEDS: POTASSIUM CHLORIDE 20 MEQ TABLET.SA PO SCH ×3 (08:52→16:31)
[2020-12-01] MEDS: SACCHAROMYCES BOULARDII 250 MG CAPSULE PO SCH (08:52)
[2020-12-01] MEDS: METOPROLOL TARTRATE 50 MG TABLET PO SCH ×2 (08:52→21:02)
[2020-12-01] MEDS: DOCUSATE SODIUM 100 MG CAPSULE PO SCH (08:52)
[2020-12-01] MEDS: CLOPIDOGREL BISULFATE 75 MG TABLET PO SCH (08:53)
[2020-12-01 13:50] LABS: Anion Gap 9.5 mmol/L (6.8-13.8); BUN/Creatinine Ratio 28.8 (9.0-21.6); Bilirubin, Total 0.3 mg/dL (0.0-1.1); Ca. Corrected For Albumin 8.5 mg/dL (8.4-10.2); Carbon Dioxide 33.3 mmol/L (24-32.6); Potassium 2.8 mmol/L (3.4-4.6); Total Protein 6.8 gm/dL (6.2-8.2)
--- NOTE | 2020-12-01 14:18 | PN ---
Subjective - Date and Time Seen Date: 12/01/20 Time: 09:10 Subjective Narrative: She states she feels better today. She is tolerating her diet. She has no complaints. She would like to go home. Objective - Review of Systems Generalized/Overall Review: Denies: Fever Respiratory: Denies: Shortness of Breath Cardiac: Denies: Chest Pain Abdominal: Denies: Abdominal Pain Misc: All systems neg except as marked - Vitals Vitals: Last Vital Signs Temp 36.2 C 12/01/20 10:00 Pulse 77 12/01/20 12:08 Resp 20 12/01/20 10:00 BP 103/47 12/01/20 10:00 Pulse Ox 95 12/01/20 10:00 - Abnormal Lab Findings Abnormal Lab Findings: Abnormal Lab Results 11/30/20 12/01/20 12/01/20 Range/Units 17:04 06:25 06:25 RBC 3.67 L (4.2-5.4) M/mm3 Hgb 9.5 L (12.5-16.0) gm/dL Hct 30.7 L (37.0-47.0) % MCH 25.9 L (27-31) pg MCHC 30.9 L (32-36) g/dl RDW 14.6 H (11.5-14.0) % Immature Gran % (Auto) 1.00 H (0.001-0.429) % Immature Gran # (Auto) 0.09 H (0.000-0.0310) K/mm3 PT 23.2 H (9.1-10.7) Seconds INR (Anticoag Therapy) 2.32 H (0.92-1.08) INR Sodium 128 L (132-142) mmol/L Plasma Sodium 128 L (130-142) mmol/L Potassium 2.5 L D (3.4-4.6) mmol/L Chloride 88 L (97-106) mmol/L Carbon Dioxide 34.5 H (24-32.6) mmol/L BUN 70 H (3-23) mg/dL Creatinine 2.58 H D (0.4-1.4) mg/dL Est GFR (Non-Af Amer) 20 L (60-130) mL/min BUN/Creatinine Ratio 27.1 H (9.0-21.6) Random Glucose 116 H (70-110) mg/dL ALT 18 L (19-67) U/L Albumin 3.1 L (3.4-5.0) gm/dl 12/01/20 12/01/20 Range/Units 06:25 13:30 RBC (4.2-5.4) M/mm3 Hgb (12.5-16.0) gm/dL Hct (37.0-47.0) % MCH (27-31) pg MCHC (32-36) g/dl RDW (11.5-14.0) % Immature Gran % (Auto) (0.001-0.429) % Immature Gran # (Auto) (0.000-0.0310) K/mm3 PT (9.1-10.7) Seconds INR (Anticoag Therapy) (0.92-1.08) INR Sodium (132-142) mmol/L Plasma Sodium (130-142) mmol/L Potassium 2.8 L 2.8 L (3.4-4.6) mmol/L Chloride 94 L 96 L (97-106) mmol/L Carbon Dioxide 33.3 H (24-32.6) mmol/L BUN 65 H 59 H (3-23) mg/dL Creatinine 2.20 H 2.05 H (0.4-1.4) mg/dL Est GFR (Non-Af Amer) 24 L 26 L (60-130) mL/min BUN/Creatinine Ratio 29.5 H 28.8 H (9.0-21.6) Random Glucose 112 H (70-110) mg/dL ALT 17 L 17 L (19-67) U/L Albumin 3.1 L 3.0 L (3.4-5.0) gm/dl - Exam Constitutional: Present: Alert, Cooperative, Well developed, Well nourished, No distress, Elderly ENT Exam: Present: hearing grossly normal, moist mucous membranes Neck: Present: non-tender, supple. Absent: lymphadenopathy (R), lymphadenopathy (L) Respiratory: Present: lungs clear, no respiratory distress, no accessory muscle use. Absent: crackles, rhonchi, wheezing Cardiovascular/Chest: Present: normal peripheral pulses, no edema, no murmur, irregularly irregular Abdomen: Present: Normal bowel sounds, soft, nontender Extremity: Present: no pedal edema Skin Exam: Present: normal color, warm/dry Neurologic: Present: alert, normal mood/affect Appearance: Present: appropriate appearance, appropriate insight Eye contact: Present: cooperative Thoughts: Present: normal mood /affect Assessment/Plan Plan Narrative: 70-year-old female with a past medical history of atrial fibrillation on anticoagulation, hypertension, hypothyroidism, heart failure with reduced ejection fraction on Lasix, CKD 4, COPD, CVA, dilated cardiomyopathy, hyperlipidemia, status post left BKA presents from home with complaints of nausea, vomiting and abdominal pain for the past 5 days. She was admitted for hypokalemia of 2.4, hyponatremia of 125 and acute kidney injury with GFR of 17, creatinine of 2.96 and BUN of 79. She was also found to have a positive UA and was started on ceftriaxone. She is feeling much better. She denies any new episodes of vomiting. Her potassium continues to be low at 2.8 in the repeat blood work this afternoon. Her GFR is improved to 26. I will give her 4 more riders of IV potassium. Continue with potassium chloride 40 mEq 3 times a day orally as well. Urine culture is positive for Providencia Rettgeri and is sensitive to ciprofloxacin. Discharge planning for tomorrow. Plan #1 Continue with aggressive repletion of potassium. Continue potassium chloride 40 mEq orally 3 times a day. Start 4 riders of potassium chloride 10 mEq IV now. #2 Continue with IV fluid hydration at 75 cc/h. #3 hold Lasix for now until kidney function improves #4 resume home medications for comorbidities #5 CBC and CMP in the morning #6 VTE prophylaxis with warfarin - Problems/Diagnosis (1) Hyponatremia Problem: Acute (2) Acute kidney injury Problem: Acute (3) Hypokalemia due to excessive gastrointestinal loss of potassium Problem: Acute (4) UTI (urinary tract infection) Problem: Acute (5) Anxiety and depression Problem: Chronic (6) Heart failure with reduced ejection fraction and diastolic dysfunction Problem: Chronic (7) Atrial fibrillation Problem: Chronic Qualifiers: (8) Chronic renal insufficiency, stage IV (severe) Problem: Chronic (9) HLD (hyperlipidemia) Problem: Chronic (10) HTN (hypertension) Problem: Chronic Qualifiers: Hypertension type: essential hypertension Qualified Code(s): I10 - Essential (primary) hypertension (11) Hypothyroidism Problem: Chronic Qualifiers:
[2020-12-01] MEDS: VENLAFAXINE HCL 37.5 MG CAP.SR.24H PO SCH (16:31)
[2020-12-01] MEDS ORDERED: WARFARIN SODIUM 5 MG TABLET PO SCH (17:00)
[2020-12-01] MEDS: ROSUVASTATIN CALCIUM 5 MG TABLET PO SCH (21:01)
[2020-12-01] MEDS: CIPROFLOXACIN IN 5 % DEXTROSE 200 MG/100 ML BAG IV SCH (21:05)
[2020-12-02] MEDS: NORMAL SALINE 1,000 ML IV PRN (04:29)
[2020-12-02 06:30] LABS: Hematocrit 26.7 % (37.0-47.0); Hemoglobin 8.2 gm/dL (12.5-16.0); Mean Cell Volume 85.6 fl (78-100); Mean Corpuscular Hemoglobin 26.3 pg (27-31); Mean Corpuscular Hgb Conc 30.7 g/dl (32-36); Mean Platelet Volume 10.3 fl (8-12.5); Neutrophil # 5.4 K/mm3 (1.3-6.0); Neutrophil % 65.7 % (42-75.0); Platelet Count 260 K/mm3 (150-450); Red Blood Count 3.12 M/mm3 (4.2-5.4); Red Cell Distribution Width 15.3 % (11.5-14.0); White Blood Count 8.3 K/mm3 (4.0-10.5)
[2020-12-02 06:43] LABS: Prothrombin Time (Patient) 17.7 Seconds (9.1-10.7)
[2020-12-02 06:48] LABS: INR 1.75 INR (0.92-1.08)
[2020-12-02 06:51] LABS: Albumin * 2.7 gm/dl (3.4-5.0); Anion Gap 10.5 mmol/L (6.8-13.8); BUN/Creatinine Ratio 23.2 (9.0-21.6); Bilirubin, Total 0.4 mg/dL (0.0-1.1); Ca. Corrected For Albumin 8.6 mg/dL (8.4-10.2); Calcium * 7.9 mg/dL (7.9-10.9); Carbon Dioxide 30.7 mmol/L (24-32.6); Potassium 3.2 mmol/L (3.4-4.6); Total Protein 6.2 gm/dL (6.2-8.2)
[2020-12-02] MEDS: LEVOTHYROXINE SODIUM 137 MCG TABLET PO SCH (06:59)
--- NOTE | 2020-12-02 09:31 | DS ---
(1) Hyponatremia Problem: Resolved (2) Acute kidney injury Problem: Resolved (3) Hypokalemia due to excessive gastrointestinal loss of potassium Problem: Acute (4) UTI (urinary tract infection) Problem: Acute (5) Anxiety and depression Problem: Chronic (6) Heart failure with reduced ejection fraction and diastolic dysfunction Problem: Chronic (7) Atrial fibrillation Problem: Chronic Qualifiers: (8) Chronic renal insufficiency, stage IV (severe) Problem: Chronic (9) HLD (hyperlipidemia) Problem: Chronic (10) HTN (hypertension) Problem: Chronic Qualifiers: Hypertension type: essential hypertension Qualified Code(s): I10 - Essential (primary) hypertension (11) Hypothyroidism Problem: Chronic Qualifiers: Hospital Course: 70-year-old female with a past medical history of atrial fibrillation on anticoagulation, hypertension, hypothyroidism, heart failure with reduced ejection fraction on Lasix, CKD 4, COPD, CVA, dilated cardiomyopathy, hyperlipidemia, status post left BKA presents from home with complaints of nause a, vomiting and abdominal pain for the past 5 days. She was admitted for hypokalemia of 2.4, hyponatremia of 125 and acute kidney injury with GFR of 17, creatinine of 2.96 and BUN of 79. She was also found to have a positive UA and was started on ceftriaxone. She is feeling much better. She denies any new episodes of vomiting. Her potassium has come up to 3.2, and GFR has improved to 30 today. Urine culture is positive for Providencia Rettgeri and is sensitive to ciprofloxacin. I will send her home on 2 more days of ciprofloxacin 250 mg twice a day. I will also increase her potassium to 40 mEq daily. She will follow-up with me in 1 to 2 weeks with a BMP. Her hemoglobin dropped from 11.4 to 8.2. This appears to be dilutional secondary to the IV fluids she was receiving, since multiple cell lines also dropped. Repeat a CBC when she follows up with me in the office. Total time spent at time of discharge, 40 minutes, greater than 50% of the time was spent in counseling the patient about her diagnosis, discussing the plan of care with the patient, medication reconciliation, coordination of care and completing the discharge instructions. Procedures Performed: none Results and Findings: Lab Pending Results 11/29/20 08:55: Urine Color Yellow, Urine Appearance Slightly cloudy, Urine pH 6.0, Ur Specific [place] 1.010, Urine Protein Negative, Urine Glucose (UA) Negative, Urine Ketones Negative, Urine Blood Negative, Urine Nitrate Negative, Urine Bilirubin Negative, Urine Urobilinogen Normal, Ur Leukocyte Esterase 100 H, Urine RBC None seen, Urine WBC 0-5, Ur Epithelial Cells 0-5, Urine Bacteria 3+ H, Urine Culture Comments Culture to follow 11/29/20 09:05: WBC 13.4 H, RBC 4.38, Hgb 11.4 L, Hct 34.6 L, MCV 79.0, MCH 26.0 L, MCHC 32.9, RDW 14.5 H, Plt Count 354, MPV 10.9, Immature Gran % (Auto) 0.40, Immature Gran # (Auto) 0.06 H, Neutrophils % 82.1 H, Lymphocytes % 10.2 L, Monocytes % 6.3, Eosinophils % 0.9, Basophils % 0.1, Nucleated RBC % 0.0, Neutrophils # 11.0 H, Lymphocytes # 1.36 L, Monocytes # 0.8, Eosinophils # 0.1, Absolute Basophils 0.0 11/29/20 09:05: Sodium 124 L, Plasma Sodium 125 L, Potassium 2.4 L* D, Chloride 77 L, Carbon Dioxide 34.8 H, Anion Gap 14.6 H, BUN 79 H D, Creatinine 2.96 H D, Est GFR (Non-Af Amer) 17 L D, BUN/Creatinine Ratio 26.7 H, Random Glucose 136 H, Calcium 9.0, Calcium Adj for Albumin 8.8, Total Bilirubin 0.8, AST 24, ALT 22, Alkaline Phosphatase 157, Total Protein 8.5 H, Albumin 3.8, Amylase 58, Lipase 145, Vitamin B12 402, TSH (Reflex) 1.240 11/29/20 09:16: PT 33.8 H, INR (Anticoag Therapy) 3.45 H, PTT ([place]) 47.2 H 11/29/20 10:15: SARS-CoV-2 (PCR) Not detected 11/30/20 06:50: PT 34.4 H, INR (Anticoag Therapy) 3.51 H 11/30/20 06:50: Sodium 125 L, Plasma Sodium 125 L, Potassium 2.0 L*, Chloride 82 L, Carbon Dioxide 33.6 H, Anion Gap 11.4, BUN 75 H, Creatinine 2.98 H, Est GFR (Non-Af Amer) 17 L, BUN/Creatinine Ratio 25.2 H, Random Glucose 110, Calcium 8.7 11/30/20 07:00: Magnesium 2.6 11/30/20 17:04: Sodium 128 L, Plasma Sodium 128 L, Potassium 2.5 L D, Chloride 88 L, Carbon Dioxide 34.5 H, Anion Gap 8.0, BUN 70 H, Creatinine 2.58 H D, Est GFR (Non-Af Amer) 20 L, BUN/Creatinine Ratio 27.1 H, Random Glucose 116 H, Calcium 8.1, Calcium Adj for Albumin 8.5, Total Bilirubin 0.4, AST 17, ALT 18 L, Alkaline Phosphatase 156, Total Protein 7.3, Albumin 3.1 L 12/01/20 06:25: PT 23.2 H, INR (Anticoag Therapy) 2.32 H 12/01/20 06:25: WBC 8.9 D, RBC 3.67 L, Hgb 9.5 L, Hct 30.7 L, MCV 83.7, MCH 25.9 L, MCHC 30.9 L, RDW 14.6 H, Plt Count 304, MPV 10.5, Immature Gran % (Auto) 1.00 H, Immature Gran # (Auto) 0.09 H, Neutrophils % 67.5, Lymphocytes % 21.8, Monocytes % 6.7, Eosinophils % 2.6, Basophils % 0.4, Nucleated RBC % 0.0, Neutrophils # 6.0, Lymphocytes # 1.94, Monocytes # 0.6, Eosinophils # 0.2, Absolute Basophils 0.0 12/01/20 06:25: Sodium 135, Plasma Sodium 135, Potassium 2.8 L, Chloride 94 L, Carbon Dioxide 32.5, Anion Gap 11.3, BUN 65 H, Creatinine 2.20 H, Est GFR (Non- Af Amer) 24 L, BUN/Creatinine Ratio 29.5 H, Random Glucose 105, Calcium 8.1, Calcium Adj for Albumin 8.5, Total Bilirubin 0.4, AST 18, ALT 17 L, Alkaline Phosphatase 143, Total Protein 7.2, Albumin 3.1 L 12/01/20 13:30: Sodium 136, Plasma Sodium 136, Potassium 2.8 L, Chloride 96 L, Carbon Dioxide 33.3 H, Anion Gap 9.5, BUN 59 H, Creatinine 2.05 H, Est GFR (Non- Af Amer) 26 L, BUN/Creatinine Ratio 28.8 H, Random Glucose 112 H, Calcium 8.0, Calcium Adj for Albumin 8.5, Total Bilirubin 0.3, AST 14, ALT 17 L, Alkaline Phosphatase 143, Total Protein 6.8, Albumin 3.0 L 12/02/20 06:24: PT 17.7 H, INR (Anticoag Therapy) 1.75 H 12/02/20 06:24: WBC 8.3, RBC 3.12 L, Hgb 8.2 L, Hct 26.7 L, MCV 85.6, MCH 26.3 L, MCHC 30.7 L, RDW 15.3 H, Plt Count 260, MPV 10.3, Immature Gran % (Auto) 1.00 H, Immature Gran # (Auto) 0.08 H, Neutrophils % 65.7, Lymphocytes % 22.1, Monocytes % 6.5, Eosinophils % 4.1 H, Basophils % 0.6, Nucleated RBC % 0.0, Neutrophils # 5.4, Lymphocytes # 1.82, Monocytes # 0.5, Eosinophils # 0.3, Absolute Basophils 0.1 12/02/20 06:24: Sodium 140, Plasma Sodium 140, Potassium 3.2 L, Chloride 102, Carbon Dioxide 30.7, Anion Gap 10.5, BUN 41 H, Creatinine 1.77 H, Est GFR (Non- Af Amer) 30 L, BUN/Creatinine Ratio 23.2 H, Random Glucose 92, Calcium 7.9, Calcium Adj for Albumin 8.6, Total Bilirubin 0.4, AST 15, ALT 15 L, Alkaline Phosphatase 117, Total Protein 6.2, Albumin 2.7 L Discharge Location: Home Disposition: Home self-care Condition: Fair Discharge Activity: Activity as tolerated Discharge Diet: General/regular food, Low salt Referrals: Swetha Villarreal MD [Primary Care Provider] - Additional Patient Instructions (free text): Please call [facility] to reschedule your aortic screening at [phone]. Increase potassium chloride to 40 mEq daily. Follow-up with Dr. Villarreal in 1 -2 weeks blood work prior to your appointment Prescriptions (Any new or edited meds): Ciprofloxacin HCl [Cipro] 250 mg PO BID #4 tab Transmission Status: Received by [facility] potassium chloride 20 mEq tablet,extended release 40 meq PO DAILY #60 tab Complete Home Medications List: Complete Home Medication List: Saccharomyces Boulardii [Probiotic] 500 mg PO DAILY 08/18/20 aspirin 81 mg tablet,delayed release 81 mg PO DAILY 08/27/20 Manual Wheelchair See Rx Instructions .ROUTE .MEDSUPPLY #1 ea 09/13/20 atorvastatin 10 mg tablet 10 mg PO DAILY #30 tab 09/20/20 clopidogrel 75 mg tablet 75 mg PO DAILY #30 tab 09/20/20 docusate sodium 100 mg tablet 100 mg PO DAILY #30 tab 09/20/20 warfarin 5 mg tablet 5 mg PO WE tab 09/20/20 levothyroxine 137 mcg tablet 137 mcg PO DAILY #30 tab 09/22/20 metoprolol tartrate 50 mg tablet 50 mg PO BID #60 tab 10/19/20 venlafaxine 75 mg capsule,extended release 24 hr 75 mg PO Q48H #30 cap 11/15/20 furosemide 80 mg tablet 80 mg PO DAILY #30 tab 11/16/20 Warfarin Sodium [Coumadin] 2.5 mg PO SUMOTUTHFRSA 11/29/20 Ciprofloxacin HCl [Cipro] 250 mg PO BID #4 tab 12/02/20 potassium chloride 20 mEq tablet,extended release 40 meq PO DAILY #60 tab 12/02/20 Amb Orders for Discharge: Basic Metabolic Panel Time Frame: 1 Week, Facility: [facility], Location: Laboratory Forms: Patient Portal Registration
[2020-12-02] MEDS: ASPIRIN 81 MG TABLET.DR PO SCH (09:54)
[2020-12-02] MEDS: POTASSIUM CHLORIDE 20 MEQ TABLET.SA PO SCH (09:54)
[2020-12-02] MEDS: SACCHAROMYCES BOULARDII 250 MG CAPSULE PO SCH (09:54)
[2020-12-02] MEDS: CLOPIDOGREL BISULFATE 75 MG TABLET PO SCH (09:55)
[2020-12-02] MEDS: METOPROLOL TARTRATE 50 MG TABLET PO SCH (09:55)
[2020-12-02] MEDS: DOCUSATE SODIUM 100 MG CAPSULE PO SCH (09:56)
[2020-12-02 11:04] VITALS: BP 125/55
== END 2020-12-02 11:15 | disposition home or self-care (01) | DRG 641 ==
LOC: ER 08:23 → MS 08:23
PROVIDERS: ADMIT Family Medicine; ATTEND Internal Medicine
DX: N39.0 Urinary tract infection, site not specified; D63.1 Anemia in chronic kidney disease; Z79.01 Long term (current) use of anticoagulants; I48.20 Chronic atrial fibrillation, unspecified; J44.9 Chronic obstructive pulmonary disease, unspecified; N17.9 Acute kidney failure, unspecified; E87.6 Hypokalemia; N18.4 Chronic kidney disease, stage 4 (severe); Z86.73 Personal history of transient ischemic attack (TIA), and cerebral infarction without residual deficits; I13.0 Hypertensive heart and chronic kidney disease with heart failure and stage 1 through stage 4 chronic kidney disease, or unspecified chronic kidney disease; E78.5 Hyperlipidemia, unspecified; I50.42 Chronic combined systolic (congestive) and diastolic (congestive) heart failure; E86.0 Dehydration; E87.1 Hypo-osmolality and hyponatremia; E03.9 Hypothyroidism, unspecified

== ENCOUNTER 2020-12-20 13:45 | Observation (INO) ==
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
[2020-12-20] MEDS ORDERED: DILTIAZEM HCL 5 MG/ML VIAL IV ONE (14:17)
[2020-12-20 14:25] LABS: Hemoglobin 8.3 gm/dL (12.5-16.0); Mean Cell Volume 86.7 fl (78-100); Mean Corpuscular Hemoglobin 25.7 pg (27-31); Mean Corpuscular Hgb Conc 29.6 g/dl (32-36); Mean Platelet Volume 9.9 fl (8-12.5); Neutrophil # 6.1 K/mm3 (1.3-6.0); Neutrophil % 70.5 % (42-75.0); Platelet Count 340 K/mm3 (150-450); Red Blood Count 3.23 M/mm3 (4.2-5.4); Red Cell Distribution Width 16.4 % (11.5-14.0); White Blood Count 8.7 K/mm3 (4.0-10.5)
[2020-12-20 14:45] LABS: INR 2.94 INR (0.92-1.08); Troponin I Less than 0.017 ng/mL (0.00-0.10)
[2020-12-20 14:46] LABS: Partial Thrombolplastin Time 38.5 Seconds (24-32)
[2020-12-20 14:47] LABS: ALT 82 U/L (19-67); AST 74 U/L (0-48); Albumin * 3.2 gm/dl (3.4-5.0); Alkaline Phosphatase * 232 U/L (50-170); Anion Gap 13.4 mmol/L (6.8-13.8); BNP * 22280 pg/mL (5-325); BUN/Creatinine Ratio 9.6 (9.0-21.6); Bilirubin, Total 0.5 mg/dL (0.0-1.1); Blood Urea Nitrogen 15 mg/dL (3-23); Ca. Corrected For Albumin 8.5 mg/dL (8.4-10.2); Calcium * 8.2 mg/dL (7.9-10.9); Carbon Dioxide 25.6 mmol/L (24-32.6); Chloride 103 mmol/L (97-106); Glucose * 93 mg/dL (70-110); Sodium 136 mmol/L (132-142); Total Protein 7.2 gm/dL (6.2-8.2)
[2020-12-20] MEDS ORDERED: FUROSEMIDE 10 MG/ML VIAL IV ONE (15:12)
[2020-12-20] MEDS ORDERED: ALBUTEROL SULFATE 2.5 MG/3 ML VIAL.NEB IH ONE (15:42)
[2020-12-20] MEDS ORDERED: CALCIUM GLUCONATE 4.65 MEQ/10 ML VIAL IV ONE (15:43)
[2020-12-20] MEDS ORDERED: INSULIN REGULAR, HUMAN 100 UNITS/ML VIAL IV ONE (15:44)
[2020-12-20] MEDS ORDERED: DEXTROSE 50%-WATER 50 ML SYRG IV ONE (15:45)
[2020-12-20] MEDS ORDERED: SODIUM BICARBONATE 1 MEQ/ML SYRG IV ONE (15:46)
[2020-12-20] MEDS ORDERED: SODIUM POLYSTYRENE SULFON/SORB 15 G/60 ML ORAL.SUSP PO ONE (15:47)
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
[2020-12-21] MEDS ORDERED: ASPIRIN 81 MG TABLET.DR PO SCH (09:00)
[2020-12-21] MEDS ORDERED: DOCUSATE SODIUM 100 MG CAPSULE PO SCH (09:00)
[2020-12-21] MEDS ORDERED: SACCHAROMYCES BOULARDII 250 MG CAPSULE PO SCH (09:00)
[2020-12-21] MEDS ORDERED: METOPROLOL TARTRATE 50 MG TABLET PO SCH (09:00)
[2020-12-21] MEDS ORDERED: LEVOTHYROXINE SODIUM 137 MCG TABLET PO SCH (09:00)
[2020-12-21] MEDS ORDERED: CLOPIDOGREL BISULFATE 75 MG TABLET PO SCH (09:00)
[2020-12-21 11:34] LABS: Albumin * 2.7 gm/dl (3.4-5.0); Anion Gap 10.7 mmol/L (6.8-13.8); BUN/Creatinine Ratio 7.5 (9.0-21.6); Bilirubin, Total 0.3 mg/dL (0.0-1.1); Ca. Corrected For Albumin 8.4 mg/dL (8.4-10.2); Calcium * 7.7 mg/dL (7.9-10.9); Carbon Dioxide 30.7 mmol/L (24-32.6); Potassium 3.4 mmol/L (3.4-4.6); Total Protein 6.3 gm/dL (6.2-8.2)
[2020-12-21] MEDS ORDERED: POTASSIUM CHLORIDE 20 MEQ TABLET.SA PO SCH (12:00)
[2020-12-21] MEDS ORDERED: FUROSEMIDE 80 MG TABLET PO SCH (12:00)
--- NOTE | 2020-12-21 14:00 | DS ---
(1) Acute on chronic diastolic CHF (congestive heart failure) Problem: Resolved (2) Atrial fibrillation with rapid ventricular response Problem: Resolved (3) Hyperkalemia Problem: Resolved Date of Discharge:: 12/21/20 Hospital Course: Inna was admitted to observation for hyperkalemia and acute on chronic diastolic CHF. She was diuresed with IV lasix and improved. She was restarted on Lasix 80mg daily PO. Her potassium was treated with bicarb, albuterol, insulin, bicarb, and kayexalate. Potassium dropped from 6.5 down to 3.4. Her potassium was restarted at 40meq to be taken with her lasix 80mg. She will have her potassium rechecked later this week. She never required oxygen and is feeling well and ready for discharge. Procedures Performed: none Results and Findings: Lab Pending Results 12/20/20 14:15: Magnesium 2.0 12/20/20 14:19: WBC 8.7, RBC 3.23 L, Hgb 8.3 L, Hct 28.0 L, MCV 86.7, MCH 25.7 L, MCHC 29.6 L, RDW 16.4 H, Plt Count 340, MPV 9.9, Immature Gran % (Auto) 1.00 H, Immature Gran # (Auto) 0.09 H, Neutrophils % 70.5, Lymphocytes % 19.0 L, Monocytes % 7.3, Eosinophils % 1.5, Basophils % 0.7, Nucleated RBC % 0.0, Neutrophils # 6.1 H, Lymphocytes # 1.66, Monocytes # 0.6, Eosinophils # 0.1, Absolute Basophils 0.1 12/20/20 14:19: Sodium 136, Plasma Sodium 136, Potassium 6.0 H, Chloride 103, Carbon Dioxide 25.6, Anion Gap 13.4, BUN 15, Creatinine 1.56 H, Est GFR (Non-Af Amer) 35 L, BUN/Creatinine Ratio 9.6, Random Glucose 93, Calcium 8.2, Calcium Adj for Albumin 8.5, Total Bilirubin 0.5, AST 74 H, ALT 82 H, Alkaline Phosphatase 232 H, Troponin I Less than 0.017, B-Natriuretic Peptide 44514 H, Total Protein 7.2, Albumin 3.2 L 12/20/20 14:19: PT 29.0 H, INR (Anticoag Therapy) 2.94 H, PTT (Armando) 38.5 H 12/20/20 15:23: Potassium 6.5 H 12/20/20 15:46: SARS-CoV-2 (PCR) Not detected 12/21/20 11:12: Sodium 141, Plasma Sodium 141, Potassium 3.4 D, Chloride 103, Carbon Dioxide 30.7, Anion Gap 10.7, BUN 14, Creatinine 1.86 H, Est GFR (Non-Af Amer) 29 L, BUN/Creatinine Ratio 7.5 L, Random Glucose 110, Calcium 7.7 L, Calcium Adj for Albumin 8.4, Total Bilirubin 0.3, AST 27, ALT 55, Alkaline Phosphatase 183 H, Total Protein 6.3, Albumin 2.7 L Discharge Location: Home Disposition: Home self-care Condition: Stable Discharge Activity: Activity as tolerated Discharge Diet: General/regular food Referrals: Swetha Villarreal MD [Primary Care Provider] - One Week Problem Oriented Discharge Instructions to Patient/Family: CHF Patient Instructions, Hyperkalemia, [id number] Prescriptions (Any new or edited meds): Furosemide [Lasix] 80 mg PO DAILY #30 tab Transmission Status: Pending to [facility] potassium chloride 20 mEq tablet,extended release 40 meq PO DAILY #60 tab Complete Home Medications List: Complete Home Medication List: Saccharomyces Boulardii [Probiotic] 500 mg PO DAILY 08/18/20 aspirin 81 mg tablet,delayed release 81 mg PO DAILY 08/27/20 Manual Wheelchair See Rx Instructions .ROUTE .MEDSUPPLY #1 ea 09/13/20 atorvastatin 10 mg tablet 10 mg PO DAILY #30 tab 09/20/20 clopidogrel 75 mg tablet 75 mg PO DAILY #30 tab 09/20/20 docusate sodium 100 mg tablet 100 mg PO DAILY #30 tab 09/20/20 warfarin 5 mg tablet 5 mg PO WE tab 09/20/20 levothyroxine 137 mcg tablet 137 mcg PO DAILY #30 tab 09/22/20 metoprolol tartrate 50 mg tablet 50 mg PO BID #60 tab 10/19/20 venlafaxine 75 mg capsule,extended release 24 hr 75 mg PO Q48H #30 cap 11/15/20 Warfarin Sodium [Coumadin] 2.5 mg PO SUMOTUTHFRSA 11/29/20 Furosemide [Lasix] 80 mg PO DAILY #30 tab 12/21/20 potassium chloride 20 mEq tablet,extended release 40 meq PO DAILY #60 tab 12/21/20 Amb Orders for Discharge: Basic Metabolic Panel Time Frame: 12/23/20, Facility: [facility], Location: Laboratory Forms: Patient Portal Registration
[2020-12-21 14:34] VITALS: BP 110/67
[2020-12-21] MEDS ORDERED: WARFARIN SODIUM 2.5 MG TABLET PO SCH (17:00)
[2020-12-21] MEDS ORDERED: ROSUVASTATIN CALCIUM 5 MG TABLET PO SCH (21:00)
[2020-12-22] MEDS ORDERED: VENLAFAXINE HCL 37.5 MG CAP.SR.24H PO SCH (09:00)
[2020-12-22] MEDS ORDERED: WARFARIN SODIUM 5 MG TABLET PO SCH (17:00)
== END 2020-12-21 14:50 | disposition home or self-care (01) ==
LOC: ER 13:45 → MS 13:45
PROVIDERS: ADMIT Family Medicine; ATTEND Internal Medicine